=== PATIENT | female | born 1935 | race Caucasian/White ===

== ENCOUNTER 2024-01-18 03:36 | Emergency (ER) | payer MEDICARE, SELFPAY ==
--- NOTE | ~2024-01-18 | CT_ITS ---
EXAMINATION: CT ABDOMEN AND PELVIS WITH CONTRAST CLINICAL INFORMATION: Reason for Exam RUQ, RLQ tender R/O appendicitis, cholecystitis COMPARISON: None available. TECHNIQUE: Multidetector volumetric images were obtained from the superior aspect of the liver through the pubic symphysis following administration 85 mL of Omnipaque 350 intravenous contrast. Sagittal and coronal reformatted images were obtained on the technologist's workstation. Oral contrast: No This CT examination was performed using dose optimization techniques as appropriate, variously including the following: *Automated exposure control *Adjustment of mA and/or kV according to patient size (this includes techniques or standardized protocols for targeted exams where dose is matched to indication/reason for exam; i.e. extremities or head) *Use of iterative reconstruction technique DLP: 529 mGy-cm FINDINGS: LUNG BASES: Mild bibasilar atelectasis. LIVER, GALLBLADDER, AND BILIARY TREE: The liver is normal in size, shape, and attenuation. Left hepatic cyst measures up to 6.2 cm. No biliary ductal dilatation is present. Gallbladder is distended with a few gallstones identified. No appreciable gallbladder wall thickening or surrounding inflammation. PANCREAS: Unremarkable. SPLEEN: Unremarkable. ADRENAL GLANDS: Unremarkable. KIDNEYS AND URETERS: Bilateral nephrograms are symmetric. No hydronephrosis or obstructing calculus identified. Several bilateral renal cysts are present measuring up to 8.8 cm; no follow-up recommended. Left lower pole calculus measures 5 mm. BLADDER: Unremarkable. GASTROINTESTINAL TRACT: Moderate to large hiatal hernia. Mild colonic diverticulosis. No evidence of bowel obstruction or significant wall thickening. Appendix is not discretely visualized. No free fluid or free air is seen. ABDOMINAL WALL: No significant hernia is appreciated. LYMPH NODES: Normal. VASCULAR: Scattered atherosclerotic calcifications. PELVIC VISCERA: Patient appears to be status post hysterectomy. OSSEOUS STRUCTURES: Facet arthropathy of the lumbar spine. Scattered endplate osteophytes. CT/CT abdomen pelvis w IV con IMPRESSION: 1. Distended gallbladder with gallstones. No appreciable gallbladder wall thickening or surrounding inflammation. However, if there is clinical concern for cholecystitis, this would be better assessed with ultrasound. 2. Moderate to large hiatal hernia. 3. Left lower pole 5 mm renal calculus without hydronephrosis.
[2024-01-18 03:43] VITALS: BP 132/61; PULSE 84; RESP 14; TEMP 36.6; O2SAT 97
[2024-01-18 03:49] VITALS: BP 126/80; BP 132/61; PULSE 72; PULSE 84; RESP 18; TEMP 36.6; O2SAT 97; O2SAT 99; BMI 29.9
--- NOTE | 2024-01-18 04:06 | ED.ABDPAIN ---
HPI - Abdominal Pain General Chief Complaint: Abdominal Pain Stated Complaint: abd pain Time Seen by Provider: 01/18/24 04:05 Source: patient Mode of arrival: EMS Limitations: no limitations History of Present Illness ED Provider: Dr. Indra Clemens HPI narrative: 88-year-old female with a history of hypertension who presents emergency department for evaluation of abdominal pain. Patient states that she developed abdominal pain around 02:00 hours when she woke up from sleep. She points to her epigastric area when she was asked to localize the pain. She states that the pain feels like a full sensation. She had nausea but no vomiting. She states the pain is 2/10. She states that she took Pepto-Bismol without any relief for pain. This is her 1st episode of this type of pain. She denied fever, chills, rhinorrhea, sore throat, cough. She denied diarrhea, dark stools or bloody stools. Related Data Allergies Allergy/AdvReac Type Severity Reaction Status Date / Time No Known Allergies Allergy Verified 01/18/24 03:54 Review of Systems Review of Systems Yes all other systems are reviewed and are negative [facility] Past Medical History [facility] Narrative: Social history: She denies tobacco, alcohol and drug use Social History Social History Advance Directives: Yes Advance Directives Information Provided: No Advance Directives on File: No Do you have a plan to hurt others: No Plan Physical Exam ED Vital Signs: Vital Signs - 24 hr 01/18/24 03:43 01/18/24 03:49 01/18/24 06:01 Temperature 97.9 F 97.9 F 97.5 F Pulse Rate 84 84 73 Respiratory Rate 14 18 14 Blood Pressure 132/61 132/61 103/49 L Pulse Oximetry 97 99 95 Oxygen Delivery Method Room Air Room Air Room Air BMI result Body Mass Index 29.9 Vital signs were normal. Exam: General: Awake, alert in no distress Head: Normocephalic, atraumatic EENT: PERRL, Lids normal, sclera normal, conjunctiva normal, nose normal , ears normal, throat without erythema or exudates Neck: Supple, no adenopathy Lung: breath sounds symmetric, no wheezing, rales or rhonchi Chest: symmetric movement, nontender Heart: regular rate and rhythm, normal S1, S2 , 2/6 systolic murmur best heard at the left lower sternal border Abdomen: soft, moderate right upper quadrant tenderness with negative Gibbs sign, moderate right lower quadrant tenderness, normoactive bowel sounds, no abdominal distention Back: no vertebral tenderness, no CVAT Extremities: no deformities, moves all extremities symmetrically Neuro: Awake, alert, oriented, normal speech, cranial nerves intact, moves all extremities symmetrically Psych: Pleasant, cooperative Medical Decision Making Medical Decision Making MDM Narrative: 88-year-old female with a history of hypertension who presents emergency department for evaluation of abdominal pain which began at 02:00 hours when she woke up from sleep. Patient had associated nausea, pain was 2/10 at its worse, she took Pepto-Bismol with no relief for symptoms. Vital signs were normal. Exam did reveal right upper quadrant and right lower quadrant tenderness. Differential diagnosis: ?Includes but is not limited to pancreatitis, gastritis, appendicitis, cholecystitis, diverticulitis, electrolyte abnormalities, anemia Following evaluation was ordered: CBC, CMP, lipase, urinalysis, magnesium Patient was initially treated with the following: IV insertion, Toradol 10 mg IV, Zofran 4 mg IV, normal saline 1 L IV Course: 06:11 My interpretation patient's laboratory evaluation as follows: WBC normal 5900. BUN elevated 22 with a normal creatinine of 0.87. Glucose elevated 123. LFTs were normal. Lipase was normal. Urinalysis revealed 2+ leukocyte esterase. Microscopic revealed 0-2 RBCs, 11-20 WBCs, no bacteria seen. Given that there are no bacteria seen, urinary tract infection is less likely and her symptoms do not correlate with a urinary tract infection. Patient's CT scan of the abdomen pelvis with IV contrast revealed a normal-appearing appendix. The patient's gallbladder was distended and had gallstones but was no gallbladder wall thickening or surrounding inflammation. I did re-evaluate the patient and after the above medications she states that her pain is completely resolved. Her right lower quadrant and right upper quadrant tenderness resolved and she has a negative Gibbs sign. It is possible that the patient's pain may have been secondary to biliary colic versus gastritis and I did discuss this with her. Patient was advised to take Tylenol 1000 mg every 6 hours as needed for pain. She was advised to follow up CP in 2 days and to return to the emergency department if her symptoms got worse or if she gets any new symptoms that are concerning to her. Admission/Observation Consideration of admission/observation: Escalation of care including admission/observation considered Lab Data MDM Lab Attestation statement: I reviewed the patient's lab results. 01/18/24 04:04 01/18/24 04:04 Labs: Lab Results 01/18/24 01/18/24 Range/Units 04:04 05:05 WBC 5.9 (4.8-10.8) X10*3/uL RBC 4.68 (4.20-5.50) X10*6/uL Hgb 14.8 (12.0-16.0) g/dl Hct 43.2 (37.0-47.0) % MCV 92.3 (80.0-98.0) fL MCH 31.6 (27.0-33.0) pg MCHC 34.3 (31.0-35.0) g/dl RDW 14.0 (11.0-16.0) % Plt Count 202 (160-400) X10*3/uL MPV 8.6 L (9.4-12.3) fL Immature Gran % (Auto) 0.3 (0.0-0.4) % Neut % (Auto) 55.0 (45-73) % Lymph % (Auto) 31.2 (20-40) % [place] % (Auto) 9.8 (2-11) % Eos % (Auto) 3.2 (0-4) % Baso % (Auto) 0.5 (0-2) % Lymph # (Auto) 1.8 (1.2-4.9) X10*3/uL Butler # (Auto) 0.6 (0.1-1.2) X10*3/uL Eos # (Auto) 0.2 (0.0-0.4) X10*3/uL Baso # (Auto) 0.0 (0.0-0.2) X10*3/uL Abs Immat Gran (auto) 0.02 (0.00-0.03) X10*3/uL Absolute Neuts (auto) 3.2 (2.0-8.3) x10*3/uL Absolute Nucleated RBC 0.000 (0.0-0.012) X10*3/uL Nucleated RBC % (auto) 0.0 (0.0-0.2) /100WBC Sodium 143 (135-145) mmol/L Potassium 4.6 (3.3-5.1) mmol/L Chloride 109 H (96-108) mmol/L Carbon Dioxide 24 (22-29) mmol/L Anion Gap 15 (12-20) BUN 22 H (9-16) mg/dL Creatinine 0.87 (0.5-1.4) mg/dL Estim Creat Clear Calc 42.1 Estimated GFR > 60 Fasting Glucose 123 H (60-99) mg/dL Calcium 9.7 (8.4-10.2) mg/dL Magnesium 2.2 (1.6-2.6) mg/dL Total Bilirubin 0.6 (0.0-1.0) mg/dL AST 14 (5-31) U/L ALT 17 (0-31) U/L Alkaline Phosphatase 90 (39-117) U/L Total Protein 6.7 (6.5-8.0) g/dL Albumin 4.2 (3.5-5.0) g/dL Lipase 25 (8-78) U/L Urine Color Yellow Urine Appearance Clear Urine pH 5.5 (5.0-9.0) Ur Specific [facility] 1.015 (1.005-1.025) Urine Protein Negative (Neg-Trace) mg/dL Urine Glucose (UA) Negative (Negative) mg/dL Urine Ketones Negative (Negative) mg/dL Urine Blood Negative (Negative) Urine Nitrite Negative (Negative) Ur Leukocyte Esterase Moderate (2+) H (Negative) Urine RBC 0-2 (0-2) /HPF Urine WBC 11-20 H (0-5) /HPF Ur Squamous Epith Cells 0-2 (0-2) /HPF Urine Bacteria None Seen (None Seen) Hyaline Casts 0-2 (0-2) /LPF Radiology Impression Discussion of test interpretation with radiology: I have reviewed the radiologist's reading. Radiologist Impression: CT abdomen pelvis w IV con IMPRESSION: 1. Distended gallbladder with gallstones. No appreciable gallbladder wall thickening or surrounding inflammation. However, if there is clinical concern for cholecystitis, this would be better assessed with ultrasound. 2. Moderate to large hiatal hernia. 3. Left lower pole 5 mm renal calculus without hydronephrosis. Dictated By: Alfred Cope MD Chronic Conditions Patient?s care impacted by: Hypertension Medications Administered Discontinued Medications Generic Name Dose Route Start Last Admin Trade Name Medina PRN Reason Stop Dose Admin Sodium Chloride 1,000 mls @ 999 mls/hr 01/18/24 04:17 01/18/24 04:38 Ns IV 01/18/24 05:17 999 mls/hr .Q1H1M STA Administration Iohexol 85 ml 01/18/24 05:01 01/18/24 05:01 Iohexol 350 Mg/Ml 100 Ml Infus..Btl IV 01/18/24 05:02 85 ml ONCE ONE Administration Ketorolac Tromethamine 10 mg 01/18/24 04:17 01/18/24 04:38 Ketorolac Tromethamine 15 Mg/Ml Vial IVPUSH 01/18/24 04:18 10 mg ONCE STA Administration Ondansetron HCl 4 mg 01/18/24 04:17 01/18/24 04:38 Ondansetron Hcl 4 Mg/2 Ml Vial IVPUSH 01/18/24 04:18 4 mg ONCE ONE Administration Discharge Plan Discharge Clinical Impression: Abdominal pain Qualifiers: Abdominal location: right upper quadrant Qualified Code(s): R10.11 - Right upper quadrant pain Gallstone Qualifiers: Cholecystitis presence: without cholecystitis Biliary obstruction: without biliary obstruction Qualified Code(s): K80.20 - Calculus of gallbladder without cholecystitis without obstruction Patient Disposition: Home, Self-Care Additional Instructions: Your blood work was normal. Your urinalysis did not reveal any bacteria in your urine therefore I do not think that you have a urinary tract infection is the cause of your pain. The CT scan of your abdomen pelvis with IV contrast revealed a normal-appearing appendix. Your gallbladder is distended and you do have gallstones but there is no [place] around the gallbladder and the liver to suggest that you have cholecystitis (blockage of drainage of bile out of the gallbladder). After he received the pain medication here in the emergency department your tenderness went away completely which is very reassuring. I suspect that you may have biliary colic caused by the gallstones in you will need to follow-up with our on-call surgeon morning or with your primary care doctor for re-evaluation and to determine if you need your gallbladder taken out. Continue taking medications as prescribed. Take Tylenol (acetaminophen) 500 mg pills, 2 pills every 6 hours as needed for pain or fever. Follow-up with your doctor in 2 days. Please return to the emergency department if your symptoms get worse or if you develop any symptoms that are concerning to you. There were several incidental findings on the CT scan including a left sided kidney stone and moderate to large hiatal hernia. You will need to follow-up with your primary care doctor to discuss these findings to see if there is any other testing or treatment that you need for them. The radiology impression is below, please show this to your primary care doctor. CT abdomen pelvis w IV con IMPRESSION: 1. Distended gallbladder with gallstones. No appreciable gallbladder wall thickening or surrounding inflammation. However, if there is clinical concern for cholecystitis, this would be better assessed with ultrasound. 2. Moderate to large hiatal hernia. 3. Left lower pole 5 mm renal calculus without hydronephrosis. Dictated By: Alfred Cope MD Referrals: Salazar Koch MD [Physician] - 2 weeks (Seen for RUQ and RLQ pain and tenderness. CBC, CMP and lipase were normal. CT abdomen pelvis IV contrast revealed distended gallbladder with gallstones but no inflammatory changes or gallbladder wall thickening) Print Language: [place]
[2024-01-18 04:08] LABS: Basophils Percent Auto 0.5 % (0-2); Eosinophils Absolute Auto 0.2 X10*3/uL (0.0-0.4); Eosinophils Percent Auto 3.2 % (0-4); Hematocrit 43.2 % (37.0-47.0); Hemoglobin 14.8 g/dl (12.0-16.0); Imm Gran Abs Auto 0.02 X10*3/uL (0.00-0.03); Imm Gran Pct Auto 0.3 % (0.0-0.4); Lymphocytes Absolute Auto 1.8 X10*3/uL (1.2-4.9); Lymphocytes Percent Auto 31.2 % (20-40); MANUAL DIFF FLAG NO; Mean Corpuscular HGB Conc 34.3 g/dl (31.0-35.0); Mean Corpuscular Hemoglobin 31.6 pg (27.0-33.0); Mean Corpuscular Volume 92.3 fL (80.0-98.0); Mean Platelet Volume 8.6 fL (9.4-12.3); Monocytes Absolute Auto 0.6 X10*3/uL (0.1-1.2); Monocytes Percent Auto 9.8 % (2-11); Neutrophils Absolute Auto 3.2 x10*3/uL (2.0-8.3); Platelet Count 202 X10*3/uL (160-400); Red Blood Count 4.68 X10*6/uL (4.20-5.50); White Blood Count 5.9 X10*3/uL (4.8-10.8)
[2024-01-18 04:22] LABS: Alanine Aminotransferase 17 U/L (0-31); Albumin Level 4.2 g/dL (3.5-5.0); Alkaline Phosphatase 90 U/L (39-117); Anion Gap 15 (12-20); Aspartate Amino Transferase 14 U/L (5-31); Bilirubin Total 0.6 mg/dL (0.0-1.0); Blood Urea Nitrogen 22 mg/dL (9-16); Calcium 9.7 mg/dL (8.4-10.2); Carbon Dioxide 24 mmol/L (22-29); Chloride 109 mmol/L (96-108); Creatinine Clr Calc Pharmacy 42.1; Estimated Glomerular Filt Rate > 60; Glucose Fasting 123 mg/dL (60-99); Lipase 25 U/L (8-78); Magnesium 2.2 mg/dL (1.6-2.6); Potassium 4.6 mmol/L (3.3-5.1); Sodium 143 mmol/L (135-145); Total Protein 6.7 g/dL (6.5-8.0)
[2024-01-18] MEDS: 0.9 % Sodium Chloride 1,000 ML 999 ML IV (04:38)
[2024-01-18] MEDS: ondansetron HCL 4 MG/2 ML VIAL IVPUSH (04:38)
[2024-01-18] MEDS: Ketorolac Tromethamine 15 MG/ML VIAL 10 MG IVPUSH (04:38)
--- NOTE | 2024-01-18 04:41 | PC.NURSE ---
#20 IV placed L-AC, labs drawn, meds and fluid administered per AUG.
[2024-01-18] MEDS: iohexoL 350 MG/ML 100 ML INFUS..BTL 85 ML IV (05:01)
[2024-01-18 05:10] LABS: Appearance Urine Clear; Color Urine Yellow; Glucose Urine UA Negative (Negative); Leukocyte Esterase Urine Moderate (2+) (Negative); Nitrite Urine Negative (Negative); PH 5.5 (5.0-9.0); Specific Gravity - Urine 1.015 (1.005-1.025); UMIC TRIGGER UACC YES; Urine Blood Negative (Negative); Urine Ketones Negative (Negative); Urine Protein Negative (Neg-Trace)
[2024-01-18 05:14] LABS: Bacteria Urine None Seen (None Seen); Hyaline Casts Urine 0-2 /LPF (0-2); RBC Urine 0-2 /HPF (0-2); Squamous Epithelial Cell Urine 0-2 /HPF (0-2); UACC Culture Trigger YES
[2024-01-18 06:01] VITALS: BP 103/49; PULSE 73; RESP 14; TEMP 36.4; O2SAT 95
--- NOTE | 2024-01-18 06:31 | PC.NURSE ---
pt ready for discharge, t/w called daughter listed under contacts. Home number did not ring and cell phone number went to voicemail. v/m requesting call back.
--- NOTE | 2024-01-18 08:41 | PC.NURSE ---
this RN has called [employer] to try and get patient a ride, they will call back if they can find one. The patients daughter also called back and stated she is in [place] and can not get the patient, and her brother is also unavailable. This RN was told to contact Father Olman to see if he could, however we do not have the contact information for him at this time.
--- NOTE | 2024-01-18 08:49 | PC.NURSE ---
Patient daughter just called back stating that her other daughter Romina would come get patient, she is currently an hour away Charge nurse aware and pt will remain in ED until daughter here d/t flight risk
[2024-01-18 10:03] VITALS: BP 124/68; PULSE 68; RESP 18; TEMP 36.6; O2SAT 98
== END 2024-01-18 10:04 | disposition home or self-care (01) ==
PROVIDERS: Emergency Provider Emergency Medicine Emergency Medical Services
DX: K80.20 Calculus of gallbladder without cholecystitis without obstruction (principal); R10.11 Right upper quadrant pain
CPT/HCPCS: 36415; 74177; 80053; 81001; 83690; 83735; 85025; 87086; 96361; 96374; 96375; 99284; J1885; J2405; Q9967

== ENCOUNTER 2025-04-07 13:46 | Inpatient (IN) | payer MEDICARE, SELFPAY ==
--- NOTE | 2025-04-07 | ECG_ITS ---
Test Reason : HTN Blood Pressure : */* mmHG Vent. Rate : 64 BPM Atrial Rate : 64 BPM P-R Int : 158 ms QRS Dur : 74 ms QT Int : 420 ms P-R-T Axes : 61 27 51 degrees QTcB Int : 433 ms Normal sinus rhythm Normal ECG No previous ECGs available Referred By: Angy Cardoza Electronically Signed By: Prasad Berumen
--- NOTE | ~2025-04-07 | MR_ITS ---
CLINICAL HISTORY: rule out CVA MR Brain without gadolinium Comparison: CT/SR - CT HEAD/BRAIN WO IV CON - 04/07/25 21:30 EDT Findings: No restricted diffusion. Left and right frontal lobe single lacunar foci of increased T2 and FLAIR signal, axial image number 18 of 28 series 8. No midline shift. No hydrocephalus. Vascular flow voids are intact. The orbits are normal. The sinuses and mastoid air cells are clear. No focal bone lesion. IMPRESSION: 1. 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 2. No acute intracranial findings. No acute ischemic event identified. This document has been electronically signed by: Huy Rainey MD on 04/08/2025 20:08:01
--- NOTE | ~2025-04-07 | US_ITS ---
CLINICAL HISTORY: Gallstones, distended gallbladder, wall thickening --- Additional Notes or Special Instructions: noted on CT. Liver, Gallbladder and common bile duct study US abdomen limited Comparison: None provided Findings: The visualized pancreas is normal. The aorta and inferior vena cava are normal caliber. The liver is normal in size and echotexture. Left liver lobe lateral segment anechoic focus with posterior acoustic enhancement, 5 x 4.6 x 6.4 cm. There is no intrahepatic bile duct dilatation. The common duct is 3 mm in diameter. The gallbladder demonstrates multiple hyperechoic gravity dependent foci with posterior acoustic shadowing. There is no sonographic Gibbs sign. The main portal vein is antegrade. Right renal lower pole anechoic focus with posterior acoustic enhancement, 5.4 x 4.8 x 5.9 cm; simple cyst. No ascites. IMPRESSION: Cholelithiasis. Left liver lobe lateral segment hepatic cyst, 5 x 4.6 x 6.4 cm. This document has been electronically signed by: Huy Rainey MD on 04/07/2025 19:37:10
--- NOTE | ~2025-04-07 | CT_ITS ---
EXAMINATION: CT HEAD WITHOUT IV CONTRAST HISTORY: recent stroke. Change in mental status. TECHNIQUE: Unenhanced helical CT of the head was performed per standard departmental protocol. Coronal and sagittal reformats of the head were also evaluated. One or more of the following techniques was used for dose reduction: Automated exposure control, adjustment of the mA and/or kV according to patient size, use of iterative reconstruction technique. DLP: 811 mGy-cm COMPARISON: Comparison is made with the prior examination dated 04/07/2025. FINDINGS: BRAIN: There is diffuse prominence of the ventricular system and cortical sulci, consistent with atrophy. Periventricular and subcortical white matter hypodensities are noted which are nonspecific, but often seen in the setting of small vessel ischemic disease. There is no mass effect or midline shift. No intra- or extra-axial fluid collections are identified. SINUSES: The visualized paranasal sinuses are clear. The mastoid air cells and middle ear cavities are well pneumatized. ORBITS: The visualized orbits are unremarkable. BONES/SOFT TISSUES: The extracranial soft tissues are unremarkable. The calvarium is intact. No suspicious lytic or sclerotic lesions. CT/CT head/brain wo IV con IMPRESSION: No acute intracranial abnormality. Electronically signed by: Abhay Frederick MD 04/09/2025 10:10 AM EDT
--- NOTE | ~2025-04-07 | CT_ITS ---
CLINICAL HISTORY: AMS new - pt injected with IV contrast [address] head without contrast Comparison: None provided Findings: No intra-axial mass, midline shift, hydrocephalus, or acute hemorrhage. Mild heterogeneous low attenuation in the periventricular white matter. The visualized paranasal sinuses and mastoid air cells are normal. The orbits are within normal limits. There is no acute fracture. Hyperostosis frontalis interna. IMPRESSION: 1. Mild chronic periventricular microvascular ischemic disease 2. Hyperostosis frontalis interna. 3. No acute intracranial findings. This document has been electronically signed by: Huy Rainey MD on 04/07/2025 22:30:05
--- NOTE | ~2025-04-07 | CT_ITS ---
CLINICAL HISTORY: RLQ pain, H O gallstone R O appendicitis, biliary CT abdomen and pelvis with contrast Comparison: CT/SR - CT ABDOMEN PELVIS WITH IV CONTRAST - 01/18/24 04:48 EDT Findings: Large hiatal hernia, similar to the prior exam. Clear lung bases. 6.4 cm cyst within the lateral segment of the liver. Multiple bilateral kidney cysts measuring up to 8 cm in size. 5 mm nonobstructive calculus within the lower pole of the left kidney without change. Borderline dilatation of the right renal collecting system without change. Pancreatic volume loss is present. The spleen and adrenal glands are unremarkable. The gallbladder is distended and contains multiple gallstones. There is thickening of the gallbladder wall which appears new since the prior study. There is a small amount of free fluid within the abdomen and pelvis, new since the prior exam. There is edema of a segment of small bowel within the right lower quadrant. There is marked congestion of the adjacent mesentery. No bowel obstruction. No pneumatosis or portal venous gas. Status post hysterectomy. Unremarkable urinary bladder. The appendix is not definitively seen. There are no secondary findings to suggest appendicitis. There is a small amount of ascites. No acute fracture. IMPRESSION: 1. There is severe enteritis of a segment of small bowel within the right lower quadrant with severe associated mesenteric edema. Infectious enteritis, inflammatory bowel disease and ischemic enteritis are all in the differential. 2. Cholelithiasis with thickening of the gallbladder wall. If there is any clinical concern for the possibility of acute cholecystitis, this could be further evaluated with ultrasound 3. Additional chronic findings as above. This document has been electronically signed by: Rica Logn MD on 04/07/2025 17:57:58
[2025-04-07 14:19] VITALS: BP 138/66; PULSE 75; O2SAT 100
[2025-04-07 14:34] VITALS: BP 164/79; PULSE 68; RESP 20; TEMP -17.7; TEMP 0; O2SAT 99; BMI 29.4
--- NOTE | 2025-04-07 14:42 | PC.NURSE ---
pt is alert and oriented to her baseline, is able to state she is at a hospital but unable to state the year-pt sates she just cant think right now do to her pain, pt is reporting lower abd pain that started today, denies n/v/d, bowel sounds hypoactive, abd soft but tender especially on the right lower
[2025-04-07 15:03] LABS: MANUAL DIFF FLAG NO
[2025-04-07 15:04] LABS: Hematocrit 48.8 % (37.0-47.0); Hemoglobin 16.4 g/dl (12.0-16.0); Imm Gran Abs Auto 0.03 X10*3/uL (0.00-0.03); Imm Gran Pct Auto 0.4 % (0.0-0.4); Lymphocytes Absolute Auto 1.5 X10*3/uL (1.2-4.9); Mean Corpuscular HGB Conc 33.6 g/dl (31.0-35.0); Mean Corpuscular Hemoglobin 30.8 pg (27.0-33.0); Mean Corpuscular Volume 91.6 fL (80.0-98.0); NRBC Abs Auto 0.000 X10*3/uL (0.0-0.012); NRBC Pct Auto 0.0 /100WBC (0.0-0.2); Platelet Count 185 X10*3/uL (160-400); Red Blood Count 5.33 X10*6/uL (4.20-5.50); White Blood Count 7.8 X10*3/uL (4.8-10.8)
[2025-04-07 15:28] LABS: Alanine Aminotransferase 17 U/L (0-31); Albumin Level 4.6 g/dL (3.5-5.0); Anion Gap 13 (12-20); Aspartate Amino Transferase 24 U/L (5-31); Blood Urea Nitrogen 16 mg/dL (9-16); Calcium 9.9 mg/dL (8.4-10.2); Carbon Dioxide 24 mmol/L (22-29); Chloride 107 mmol/L (96-108); Creatinine Clr Calc Pharmacy 44.5; Estimated Glomerular Filt Rate > 60; Lipase 18 U/L (8-78); Potassium 4.0 mmol/L (3.3-5.1); Sodium 140 mmol/L (135-145); Total Protein 7.1 g/dL (6.5-8.0)
--- NOTE | 2025-04-07 15:48 | ED.ABDPAIN ---
HPI - Abdominal Pain General Chief Complaint: Abdominal Pain Stated Complaint: body pain, nausea Time Seen by Provider: 04/07/25 15:48 Source: patient Mode of arrival: EMS Limitations: other (Memory issues) History of Present Illness ED Provider: Dr. Indra Clemens HPI narrative: 88-year-old female with a history of hypertension who presents emergency department for evaluation of abdominal pain. Patient has some memory issues that has unclear how reliable of a historian she is. Patient states the pain started prior to coming to the emergency department. She points to her lower abdomen when she is asked to localize the pain. She can not tell me the severity or quality of the pain. She complained of nausea and vomiting but no diarrhea. On exam she did have significant right lower quadrant tenderness with no right upper quadrant tenderness Patient was seen in the emergency department on 01/18/2024 by me with similar right lower quadrant tenderness. At that time she had a CT scan of the abdomen pelvis with IV contrast that revealed a distended gallbladder with gallstones but no gallbladder wall thickening and a normal-appearing appendix. She was treated with Toradol IV fluid and Zofran with improvement of her symptoms. She was discharged home with a diagnosis of right lower quadrant abdominal pain and cholelithiasis. Related Data Home Medications ?Medication ?Instructions ?Recorded ?Confirmed amlodipine 10 mg tablet 10 mg PO DAILY 04/07/25 04/08/25 lisinopril 10 mg tablet 10 mg PO DAILY 04/07/25 04/08/25 Allergies Allergy/AdvReac Type Severity Reaction Status Date / Time No Known Allergies Allergy Verified 04/07/25 14:37 [facility] Past Medical History Medical History (Updated 04/11/25 @ 10:12 by Indio Jones MD) HTN (hypertension) Surgical History H/O: hysterectomy Social History Social History Household Members: None Housing: Apartment Housing Other:: [address] Do you presently have visiting nurse or other home services: No Alcohol intake: never Comment: freq checks on pt Patient Tobacco Use Status: Never used Tobacco Smoked in Last 30 Days: No Use of substances other than those prescribed or required for medical reasons: No Currently Displaying Signs/Symptoms of Drug Intoxication Withdrawal: No Have you been hit, kicked, punched, or otherwise hurt by someone within the past year? If so, by whom?: No Do you feel safe in your current relationship?: Yes Is there a partner from a previous relationship who is making you feel unsafe now?: No Are you made to feel afraid or neglected: No Advance Directives: No Advance Directives Information Provided: Yes Do you have a plan to hurt others: No Plan Recently lost weight without trying: Unsure Eating poorly because of decreased appetite: No Nutrition Risks: No Nutritional Risk Patient : No : No Poor oral hygiene: No service: No Physical Exam ED Vital Signs: Vital Signs - 24 hr 04/07/25 14:34 04/07/25 17:24 04/07/25 18:57 Temperature 0 F L 98 F 97.8 F Pulse Rate 68 69 71 Respiratory Rate 20 18 19 Blood Pressure 164/79 H 140/70 H 154/82 H Pulse Oximetry 99 98 97 Oxygen Delivery Method Room Air Room Air Room Air BMI result Body Mass Index 29.4 Vital signs revealed an elevated blood pressure of 164/79 otherwise unremarkable. Exam: General: Awake, alert in no distress, and does appear to be confused and has some difficulty with her memory Head: Normocephalic, atraumatic EENT: PERRL, sclera and conjunctiva are normal, mouth with no erythema or exudates Neck: Supple, no adenopathy Lung: breath sounds symmetric, no wheezing, no rales and no rhonchi Chest: symmetric movement, nontender Heart: regular rate and rhythm, normal S1, S2 no murmurs or rubs Abdomen: soft, moderate right lower quadrant tenderness with no rebound, no right upper quadrant tenderness, negative Gibbs sign, nondistended, normal bowel sounds Back: no vertebral tenderness, no CVAT Extremities: no deformities, moves all extremities symmetrically, no edema Neuro: Awake, alert, oriented to person, normal speech, cranial nerves 2-12 intact, moves all extremities symmetrically Psych: Pleasant, cooperative Medical Decision Making Medical Decision Making MDM Narrative: 88-year-old female with a history of hypertension who presents emergency department for evaluation of abdominal pain. Patient has some memory issues that has unclear how reliable of a historian she is. Patient states the pain started prior to coming to the emergency department. She points to her lower abdomen when she is asked to localize the pain. She can not tell me the severity or quality of the pain. She complained of nausea and vomiting but no diarrhea. On exam patient had an elevated blood pressure, she did have significant right lower quadrant tenderness with no right upper quadrant tenderness Differential diagnosis: ?Includes but is not limited to pancreatitis, cholecystitis, gastritis, appendicitis, diverticulitis, anemia, electrolyte abnormalities Course: 18:31 Patient was initially treated with normal saline IV x1 L, famotidine 20 mg IV and Toradol 15 mg IV with improvement of her pain but no change in her right lower quadrant tenderness. My interpretation patient's laboratory evaluation is as follows: CBC was normal. Glucose elevated 162. LFTs were normal except for an elevated total bilirubin of 1.5, normal direct bilirubin of 0.4, indirect bilirubin of 1.1. LFTs were normal. Lipase was normal CT scan of the abdomen pelvis is consistent with severe enteritis of segment of small bowel in the right lower quadrant with severe associated mesenteric edema. This correlates with her right lower quadrant tenderness. Radiologist felt that this could be secondary to inflammatory bowel disease versus ischemic colitis. Patient was also noted to have cholelithiasis with thickening of the gallbladder wall. Patient had no right upper quadrant tenderness. Given these findings I did order blood cultures x2, lactic acid, right upper quadrant ultrasound to evaluate for possible acute cholecystitis. Patient was also ordered to get Zosyn 4.5 g IV and lactated Ringer's at 125 cc/hour. 20:03 Patient complained of increased pain and was treated with morphine 4 mg IV with relief of her discomfort Right upper quadrant ultrasound revealed no intrahepatic ductal dilatation or common bile duct dilatation. The patient had multiple gallstones but no evidence of gallbladder wall thickening or perihepatic fluid to suggest she has a acute cholecystitis. I did discuss the patient's presentation over tiger text with the covering hospitalist, Dr. Burton and the patient will be admitted to the hospitalist service for further management. Differential Diagnosis Differential Diagnoses: The differential diagnosis associated with the presentation includes (See above) Admission/Observation Consideration of admission/observation: Escalation of care including admission/observation considered (Yes) Lab Data 04/09/25 09:28 04/09/25 09:28 Labs: Lab Results 04/07/25 04/07/25 04/07/25 Range/Units 14:56 17:10 18:50 WBC 7.8 (4.8-10.8) X10*3/uL RBC 5.33 (4.20-5.50) X10*6/uL Hgb 16.4 H (12.0-16.0) g/dl Hct 48.8 H (37.0-47.0) % MCV 91.6 (80.0-98.0) fL MCH 30.8 (27.0-33.0) pg MCHC 33.6 (31.0-35.0) g/dl RDW 13.3 (11.0-16.0) % Plt Count 185 (160-400) X10*3/uL MPV 8.8 L (9.4-12.3) fL Immature Gran % (Auto) 0.4 (0.0-0.4) % Neut % (Auto) 75.1 H (45-73) % Lymph % (Auto) 18.9 L (20-40) % [place] % (Auto) 5.3 (2-11) % Eos % (Auto) 0.0 (0-4) % Baso % (Auto) 0.3 (0-2) % Lymph # (Auto) 1.5 (1.2-4.9) X10*3/uL [place] # (Auto) 0.4 (0.1-1.2) X10*3/uL Eos # (Auto) 0.0 (0.0-0.4) X10*3/uL Baso # (Auto) 0.0 (0.0-0.2) X10*3/uL Abs Immat Gran (auto) 0.03 (0.00-0.03) X10*3/uL Absolute Neuts (auto) 5.8 (2.0-8.3) x10*3/uL Absolute Nucleated RBC 0.000 (0.0-0.012) X10*3/uL Nucleated RBC % (auto) 0.0 (0.0-0.2) /100WBC ESR (0-20) MM/HR Sodium 140 (135-145) mmol/L Potassium 4.0 (3.3-5.1) mmol/L Chloride 107 (96-108) mmol/L Carbon Dioxide 24 (22-29) mmol/L Anion Gap 13 (12-20) BUN 16 (9-16) mg/dL Creatinine 0.80 (0.5-1.4) mg/dL Estim Creat Clear Calc 44.5 Estimated GFR > 60 Random Glucose 162 H (60-115) mg/dL Lactic Acid 2.1 H* (0.5-2.0) mmol/L Calcium 9.9 (8.4-10.2) mg/dL Iron 80 (30-160) mcg/dL TIBC 263 (228-428) mcg/dL % Saturation 30 (15-50) % Unsat Iron Binding 183 ug/dL Total Bilirubin 1.5 H (0.0-1.0) mg/dL Direct Bilirubin 0.4 (0.0-0.5) mg/dL AST 24 (5-31) U/L ALT 17 (0-31) U/L Alkaline Phosphatase 90 (39-117) U/L C-Reactive Protein (< or = 0.50) mg/dL Total Protein 7.1 (6.5-8.0) g/dL Albumin 4.6 (3.5-5.0) g/dL Lipase 18 (8-78) U/L Urine Color Yellow Urine Appearance Clear Urine pH 7.0 (5.0-9.0) Ur Specific [place] 1.025 (1.005-1.025) Urine Protein Trace (Neg-Trace) mg/dL Urine Glucose (UA) 250 H (Negative) mg/dL Urine Ketones 15 (Negative) mg/dL Urine Blood Negative (Negative) Urine Nitrite Negative (Negative) Ur Leukocyte Esterase Trace H (Negative) Urine RBC 0-2 (0-2) /HPF Urine WBC 0-5 (0-5) /HPF Ur Squamous Epith Cells 0-2 (0-2) /HPF Urine Bacteria None Seen (None Seen) Hyaline Casts 0-2 (0-2) /LPF 04/07/25 Range/Units 19:01 WBC (4.8-10.8) X10*3/uL RBC (4.20-5.50) X10*6/uL Hgb (12.0-16.0) g/dl Hct (37.0-47.0) % MCV (80.0-98.0) fL MCH (27.0-33.0) pg MCHC (31.0-35.0) g/dl RDW (11.0-16.0) % Plt Count (160-400) X10*3/uL MPV (9.4-12.3) fL Immature Gran % (Auto) (0.0-0.4) % Neut % (Auto) (45-73) % Lymph % (Auto) (20-40) % [place] % (Auto) (2-11) % Eos % (Auto) (0-4) % Baso % (Auto) (0-2) % Lymph # (Auto) (1.2-4.9) X10*3/uL [place] # (Auto) (0.1-1.2) X10*3/uL Eos # (Auto) (0.0-0.4) X10*3/uL Baso # (Auto) (0.0-0.2) X10*3/uL Abs Immat Gran (auto) (0.00-0.03) X10*3/uL Absolute Neuts (auto) (2.0-8.3) x10*3/uL Absolute Nucleated RBC (0.0-0.012) X10*3/uL Nucleated RBC % (auto) (0.0-0.2) /100WBC ESR 2 (0-20) MM/HR Sodium (135-145) mmol/L Potassium (3.3-5.1) mmol/L Chloride (96-108) mmol/L Carbon Dioxide (22-29) mmol/L Anion Gap (12-20) BUN (9-16) mg/dL Creatinine (0.5-1.4) mg/dL Estim Creat Clear Calc Estimated GFR Random Glucose (60-115) mg/dL Lactic Acid (0.5-2.0) mmol/L Calcium (8.4-10.2) mg/dL Iron (30-160) mcg/dL TIBC (228-428) mcg/dL % Saturation (15-50) % Unsat Iron Binding ug/dL Total Bilirubin (0.0-1.0) mg/dL Direct Bilirubin (0.0-0.5) mg/dL AST (5-31) U/L ALT (0-31) U/L Alkaline Phosphatase (39-117) U/L C-Reactive Protein 0.22 (< or = 0.50) mg/dL Total Protein (6.5-8.0) g/dL Albumin (3.5-5.0) g/dL Lipase (8-78) U/L Urine Color Urine Appearance Urine pH (5.0-9.0) Ur Specific [place] (1.005-1.025) Urine Protein (Neg-Trace) mg/dL Urine Glucose (UA) (Negative) mg/dL Urine Ketones (Negative) mg/dL Urine Blood (Negative) Urine Nitrite (Negative) Ur Leukocyte Esterase (Negative) Urine RBC (0-2) /HPF Urine WBC (0-5) /HPF Ur Squamous Epith Cells (0-2) /HPF Urine Bacteria (None Seen) Hyaline Casts (0-2) /LPF Radiology Impression Discussion of test interpretation with radiology: I have reviewed the radiologist's reading. Radiologist Impression: CT abdomen and pelvis with contrast Comparison: CT/SR - CT ABDOMEN PELVIS WITH IV CONTRAST - 01/18/24 04:48 EDT Findings: Large hiatal hernia, similar to the prior exam. Clear lung bases. 6.4 cm cyst within the lateral segment of the liver. Multiple bilateral kidney cysts measuring up to 8 cm in size. 5 mm nonobstructive calculus within the lower pole of the left kidney without change. Borderline dilatation of the right renal collecting system without change. Pancreatic volume loss is present. The spleen and adrenal glands are unremarkable. The gallbladder is distended and contains multiple gallstones. There is thickening of the gallbladder wall which appears new since the prior study. There is a small amount of free fluid within the abdomen and pelvis, new since the prior exam. There is edema of a segment of small bowel within the right lower quadrant. There is marked congestion of the adjacent mesentery. No bowel obstruction. No pneumatosis or portal venous gas. Status post hysterectomy. Unremarkable urinary bladder. The appendix is not definitively seen. There are no secondary findings to suggest appendicitis. There is a small amount of ascites. No acute fracture. IMPRESSION: 1. There is severe enteritis of a segment of small bowel within the right lower quadrant with severe associated mesenteric edema. Infectious enteritis, inflammatory bowel disease and ischemic enteritis are all in the differential. 2. Cholelithiasis with thickening of the gallbladder wall. If there is any clinical concern for the possibility of acute cholecystitis, this could be further evaluated with ultrasound 3. Additional chronic findings as above. This document has been electronically signed by: Rica Long MD on 04/07/2025 17:57:58 US abdomen limited Comparison: None provided Findings: The visualized pancreas is normal. The aorta and inferior vena cava are normal caliber. The liver is normal in size and echotexture. Left liver lobe lateral segment anechoic focus with posterior acoustic enhancement, 5 x 4.6 x 6.4 cm. There is no intrahepatic bile duct dilatation. The common duct is 3 mm in diameter. The gallbladder demonstrates multiple hyperechoic gravity dependent foci with posterior acoustic shadowing. There is no sonographic Gibbs sign. The main portal vein is antegrade. Right renal lower pole anechoic focus with posterior acoustic enhancement, 5.4 x 4.8 x 5.9 cm; simple cyst. No ascites. IMPRESSION: Cholelithiasis. Left liver lobe lateral segment hepatic cyst, 5 x 4.6 x 6.4 cm. This document has been electronically signed by: Huy Rainey MD on 04/07/2025 19:37:10 Medications Administered Generic Name Dose Route Start Last Admin Trade Name Freq PRN Reason Stop Dose Admin Acetaminophen 650 mg 04/07/25 20:31 04/10/25 06:18 Acetaminophen 325 Mg Tablet PO 325 mg Q6H PRN Administration Pain, Mild 1-3,fever,headache Atorvastatin Calcium 80 mg 04/09/25 09:00 04/11/25 09:13 Atorvastatin Calcium 80 Mg Tablet PO 80 mg DAILY MARIBEL Administration Hydromorphone HCl 1 mg 04/07/25 20:33 04/09/25 17:20 Hydromorphone Hcl 1 Mg/Ml Syringe IVPUSH 1 mg Q3H PRN Administration Pain, Severe (Pain Scale 7-10) Protocol Hydromorphone HCl 0.5 mg 04/07/25 20:34 04/08/25 09:55 Hydromorphone Hcl 0.5 Mg/0.5 Ml Syringe IVPUSH 0.5 mg Q3H PRN Administration Pain, Moderate(Pain Scale 4-6) Protocol Piperacillin Sod/Tazobactam 100 mls @ 200 mls/hr 04/08/25 01:30 04/11/25 13:54 Sod 4.5 gm/ Sodium Chloride IV Infused Q6H MARIBEL Infusion Lisinopril 10 mg 04/10/25 09:00 04/11/25 09:18 Lisinopril 10 Mg Tablet PO 10 mg DAILY MARIBEL Administration Protocol Melatonin 6 mg 04/07/25 20:31 04/08/25 21:06 Melatonin 3 Mg Tablet PO 6 mg BEDTIME PRN Administration Insomnia Metoprolol Tartrate 25 mg 04/11/25 09:00 04/11/25 09:13 Metoprolol Tartrate 25 Mg Tablet PO 25 mg BID MARIBEL Administration Protocol Ondansetron HCl 4 mg 04/07/25 20:31 04/11/25 13:13 Ondansetron Hcl 4 Mg/2 Ml Vial IVPUSH 4 mg Q8H PRN Administration Nausea and Vomiting Sodium Chloride 3 ml 04/08/25 00:00 04/11/25 09:10 0.9 % Sodium Chloride Flush 3 Ml Syringe IVFLUSH 3 ml QSHIFT MARIBEL Administration Discontinued Medications Generic Name Dose Route Start Last Admin Trade Name Freq PRN Reason Stop Dose Admin Aspirin 81 mg 04/09/25 09:00 04/11/25 09:18 Aspirin Enteric Coated 81 Mg Tablet. PO 81 mg DAILY MARIBEL Administration Clopidogrel Bisulfate 75 mg 04/09/25 07:45 04/09/25 11:47 Clopidogrel Bisulfate 75 Mg Tablet PO 04/30/25 07:44 75 mg ONCE MARIBEL Administration Enoxaparin Sodium 40 mg 04/08/25 09:00 04/11/25 09:13 Enoxaparin Sodium 40 Mg/0.4 Ml Syringe SUBCUT 40 mg Q24H MARIBEL Administration Famotidine 20 mg 04/07/25 15:55 04/07/25 16:12 Famotidine 20 Mg Tablet PO 04/07/25 15:56 20 mg ONCE ONE Administration Sodium Chloride 1,000 mls @ 999 mls/hr 04/07/25 15:55 04/07/25 19:29 Ns IV 04/07/25 16:55 Infused .Q1H1M STA Infusion Piperacillin Sod/Tazobactam 100 mls @ 200 mls/hr 04/07/25 18:05 04/07/25 20:18 Sod 4.5 gm/ Sodium Chloride IV 04/07/25 18:34 Infused ONCE ONE Infusion Lactated Ringer's 1,000 mls @ 125 mls/hr 04/07/25 18:45 04/09/25 19:49 Lr IVCONT Infused .Q8H MARIBEL Infusion Iohexol 100 ml 04/07/25 16:45 04/07/25 16:47 Iohexol 350 Mg/Ml 100 Ml Infus..Btl IV 04/07/25 16:46 85 ml ONCE ONE Administration Ketorolac Tromethamine 15 mg 04/07/25 15:55 04/07/25 16:12 Ketorolac Tromethamine 15 Mg/Ml Vial IVPUSH 04/07/25 15:56 15 mg ONCE STA Administration Metoprolol Tartrate 5 mg 04/10/25 15:15 04/10/25 15:19 Metoprolol Tartrate 5 Mg/5 Ml Vial IVPUSH 04/10/25 15:16 5 mg ONCE ONE Administration Protocol Metoprolol Tartrate 25 mg 04/10/25 15:52 04/10/25 16:02 Metoprolol Tartrate 25 Mg Tablet PO 04/10/25 15:53 25 mg ONCE ONE Administration Protocol Morphine Sulfate 4 mg 04/07/25 19:11 04/07/25 19:28 Morphine Sulfate 4 Mg/Ml Cartridge IVPUSH 04/07/25 19:12 4 mg ONCE STA Administration Protocol Ondansetron HCl 4 mg 04/09/25 14:42 04/09/25 14:56 Ondansetron Hcl 4 Mg/2 Ml Vial IVPUSH 04/09/25 14:43 4 mg ONCE ONE Administration Pantoprazole Sodium 40 mg 04/09/25 14:42 04/09/25 14:55 Pantoprazole Sodium 40 Mg/10 Ml Vial IVPUSH 04/09/25 14:43 40 mg ONCE ONE Administration Pantoprazole Sodium 40 mg 04/10/25 09:53 04/10/25 10:23 Pantoprazole Sodium 40 Mg/10 Ml Vial IVPUSH 04/10/25 09:54 40 mg ONCE ONE Administration Prochlorperazine Edisylate 5 mg 04/10/25 13:23 04/10/25 13:29 Prochlorperazine Edisylate 10 Mg/2 Ml Vial IVPUSH 04/10/25 13:24 5 mg ONCE ONE Administration Critical Care Time Critical Care Time Critical Care Time: Yes Total Critical Care Time: 45 Attestation: Critical Care: The patient was critically ill with a high probability of imminent or life threatening deterioration. I spent greater than 30 minutes of discontinuous time evaluating the patient,delivering critical care at the bedside, discussing and evaluating pertinent data with consultants. Critical care time does not include time spent performing separately billable procedures or teaching. Total time spent performing critical care was 45 minutes. Discharge Plan Discharge Clinical Impression: Enteritis Abdominal pain Qualifiers: Abdominal location: right lower quadrant Qualified Code(s): R10.31 - Right lower quadrant pain Patient Disposition: Admitted As Inpatient Interventions: Admission Worksheet (ED) Last Done: 04/07/25 22:17 Discharge Date/Time: 04/08/25 02:36
[2025-04-07 15:59] LABS: Alkaline Phosphatase 90 U/L (39-117)
[2025-04-07] MEDS: iohexoL 350 MG/ML 100 ML INFUS..BTL IV (16:47)
[2025-04-07 17:24] VITALS: BP 140/70; PULSE 69; RESP 18; TEMP 36.6; O2SAT 98
[2025-04-07 17:31] LABS: Appearance Urine Clear; Glucose Urine UA 250 mg/dL (Negative); PH 7.0 (5.0-9.0); Specific Gravity - Urine 1.025 (1.005-1.025); UMIC TRIGGER UACC YES
[2025-04-07 18:57] VITALS: BP 154/82; PULSE 71; RESP 19; TEMP 36.6; O2SAT 97
[2025-04-07] MEDS: Lactated Ringers 1,000 ML 125 ML IVCONT (20:02)
--- NOTE | 2025-04-07 20:34 | PM.IMHP ---
History of Present Illness Date of Service: 04/07/25 Attending physician on admission: Lei Amaya Chief Complaint: abdominal pain Pt is an 89 yo Caucasuan female with PMH HTN, Hysterectomy was BIBA from [facility] where pt lives in an independent living apartment for complaint of lower abdominal pain that started earlier today. Pt at this time is not able to provide any history as she appears to have difficulty with word finding and word salad the majority of the conversation. Neuro exam otherwise stable. Per ED provider, pt was found wandering earlier in the ED and had to be brought back to her room. Pt's symptoms were present prior to receiving morphine today for pain. This job specification writer did call pt's daughter Merlene Pearson) and she confirmed that pt is normally A/O X3 without evidence of word finding problems or confusion. Pt only has hx of HTN and the hysterectomy and has no HX of stroke or arrhythmia including AFIB. Pt is independent with her care needs and usually walks independently without assistive device. Pt's daughter is also pt's HCP and she confirmed that advance directive is DNR DNI. Work up initially included CXR and CT abdomen which identified enteritis. US ABD noted cholelithiasis without acute cholecystiits. Pt was started on LR at 125 mls per hour and Zosyn. Lactic acid 2.2 initially, corrected to 1.2 after fluids. Pt has no leukocytosis, fever but appears to have an elevated H/H 16.4/48.8. UA negative for UTI. Pt currently comfortable but baseline confused with word finding issues. CT head pending. Plan is to admit pt for enteritis, cholelithiais and work up for AMS, encephalopathy? Review of Systems Review of Systems: Yes Unobtainable due to mental status (trouble with work finding ) [facility] Medical History HTN (hypertension) Cognitive capacity: Awake, confused baseline, trouble with word finding, some word salad Functional capacity: independent ambulation Patient : No Surgical History H/O: hysterectomy Social History Household Members: None Housing: Apartment Housing Other:: [address] Do you presently have visiting nurse or other home services: No Alcohol intake: never Patient Tobacco Use Status: Never used Tobacco Smoked in Last 30 Days: No Use of substances other than those prescribed or required for medical reasons: No Have you been hit, kicked, punched, or otherwise hurt by someone within the past year? If so, by whom?: No Do you feel safe in your current relationship?: Yes Is there a partner from a previous relationship who is making you feel unsafe now?: No Are you made to feel afraid or neglected: No Advance Directives: No Advance Directives Information Provided: Yes Do you have a plan to hurt others: No Plan Recently lost weight without trying: Unsure Eating poorly because of decreased appetite: No Nutrition Risks: No Nutritional Risk Patient : No : No Poor oral hygiene: No Ebola Risk: Travel/Contact With Anyone From Affected Area/s: No Has Patient Experienced Ebola Symptoms: No Meds Allergies Allergy/AdvReac Type Severity Reaction Status Date / Time No Known Allergies Allergy Verified 04/07/25 14:37 Active Medications: Current Medications Acetaminophen (Acetaminophen 325 Mg Tablet) 650 mg PO Q6H PRN PRN Reason: Pain, Mild 1-3,fever,headache Albuterol/Ipratropium (Albuterol/Iprat 2.5/0.5mg 3 Ml Ampul.Neb) 3 ml INHALE Q4H PRN PRN Reason: Shortness of Breath/Wheezing Calcium Carbonate (Calcium Carbonate 750 Mg Tab.Chew) 750 mg PO Q4H PRN PRN Reason: Heartburn Lactated Ringer's (Lr) 1,000 mls @ 125 mls/hr IVCONT .Q8H MARIBEL Last Admin: 04/07/25 20:02 Dose: 125 mls/hr Lactated Ringer's (Lr) 1,000 mls @ 100 mls/hr IVCONT .Q10H MARIBEL Piperacillin Sod/Tazobactam (Sod 4.5 gm/ Sodium Chloride) 100 mls @ 200 mls/hr IV Q6H MARIBEL Magnesium Hydroxide (Milk Of Magnesia 30 Ml Oral.Susp) 30 ml PO DAILY PRN PRN Reason: Constipation Melatonin (Melatonin 3 Mg Tablet) 6 mg PO BEDTIME PRN PRN Reason: Insomnia Ondansetron HCl (Ondansetron Hcl 4 Mg/2 Ml Vial) 4 mg IVPUSH Q8H PRN PRN Reason: Nausea and Vomiting Polyethylene Glycol (Polyethylene Glycol 3350 17 Gm Powd.Pack) 17 gm PO DAILY PRN PRN Reason: Constipation Sodium Chloride (0.9 % Sodium Chloride Flush 3 Ml Syringe) 3 ml IVFLUSH QSHIFT [facility] Home Medications ?Medication ?Instructions ?Recorded ?Confirmed ?Last Taken ?Type amlodipine 10 mg tablet 10 mg PO DAILY 04/07/25 Unknown History lisinopril 10 mg tablet 10 mg PO DAILY 04/07/25 Unknown History Physical Exam Vital Signs and Narrative: Vital Signs: Last Vital Signs Temp 97.8 F 04/07/25 18:57 Pulse 71 04/07/25 18:57 Resp 19 04/07/25 18:57 BP 154/82 H 04/07/25 18:57 Pulse Ox 97 04/07/25 18:57 O2 Del Method Room Air 04/07/25 18:57 BMI result Body Mass Index 29.4 Results Labs 04/07/25 14:56 04/07/25 14:56 Labs: Laboratory Results - last 24 hr 04/07/25 04/07/25 04/07/25 14:56 17:10 18:50 MCV 91.6 MCH 30.8 MCHC 33.6 RDW 13.3 Plt Count 185 MPV 8.8 L Immature Gran % (Auto) 0.4 Neut % (Auto) 75.1 H Lymph % (Auto) 18.9 L [place] % (Auto) 5.3 Eos % (Auto) 0.0 Baso % (Auto) 0.3 Lymph # (Auto) 1.5 [place] # (Auto) 0.4 Eos # (Auto) 0.0 Baso # (Auto) 0.0 Abs Immat Gran (auto) 0.03 Absolute Neuts (auto) 5.8 Absolute Nucleated RBC 0.000 Nucleated RBC % (auto) 0.0 ESR Anion Gap 13 Estim Creat Clear Calc 44.5 Estimated GFR > 60 Random Glucose 162 H Lactic Acid 2.1 H* Calcium 9.9 Total Bilirubin 1.5 H Direct Bilirubin 0.4 AST 24 ALT 17 Alkaline Phosphatase 90 C-Reactive Protein Total Protein 7.1 Albumin 4.6 Lipase 18 Urine Color Yellow Urine Appearance Clear Urine pH 7.0 Ur Specific [place] 1.025 Urine Protein Trace Urine Glucose (UA) 250 H Urine Ketones 15 Urine Blood Negative Urine Nitrite Negative Ur Leukocyte Esterase Trace H Urine RBC 0-2 Urine WBC 0-5 Ur Squamous Epith Cells 0-2 Urine Bacteria None Seen Hyaline Casts 0-2 04/07/25 19:01 MCV MCH MCHC RDW Plt Count MPV Immature Gran % (Auto) Neut % (Auto) Lymph % (Auto) [place] % (Auto) Eos % (Auto) Baso % (Auto) Lymph # (Auto) [place] # (Auto) Eos # (Auto) Baso # (Auto) Abs Immat Gran (auto) Absolute Neuts (auto) Absolute Nucleated RBC Nucleated RBC % (auto) ESR 2 Anion Gap Estim Creat Clear Calc Estimated GFR Random Glucose Lactic Acid Calcium Total Bilirubin Direct Bilirubin AST ALT Alkaline Phosphatase C-Reactive Protein 0.22 Total Protein Albumin Lipase Urine Color Urine Appearance Urine pH Ur Specific [place] Urine Protein Urine Glucose (UA) Urine Ketones Urine Blood Urine Nitrite Ur Leukocyte Esterase Urine RBC Urine WBC Ur Squamous Epith Cells Urine Bacteria Hyaline Casts ECG Attestation: I personally reviewed and interpreted this ECG as follows: Prior ECG tracings: not available for review Imaging Radiologist's Impressions: US ABD Findings: The visualized pancreas is normal. The aorta and inferior vena cava are normal caliber. The liver is normal in size and echotexture. Left liver lobe lateral segment anechoic focus with posterior acoustic enhancement, 5 x 4.6 x 6.4 cm. There is no intrahepatic bile duct dilatation. The common duct is 3 mm in diameter. The gallbladder demonstrates multiple hyperechoic gravity dependent foci with posterior acoustic shadowing. There is no sonographic Gibbs sign. The main portal vein is antegrade. Right renal lower pole anechoic focus with posterior acoustic enhancement, 5.4 x 4.8 x 5.9 cm; simple cyst. No ascites. IMPRESSION: Cholelithiasis. Left liver lobe lateral segment hepatic cyst, 5 x 4.[address] ABD IMPRESSION: 1. There is severe enteritis of a segment of small bowel within the right lower quadrant with severe associated mesenteric edema. Infectious enteritis, inflammatory bowel disease and ischemic enteritis are all in the differential. 2. Cholelithiasis with thickening of the gallbladder wall. If there is any clinical concern for the possibility of acute cholecystitis, this could be further evaluated with ultrasound 3. Additional chronic findings as above. Assessment and Plan (1) Enteritis: Status: Acute (2) Abdominal pain: Qualifiers: Abdominal location: right lower quadrant Qualified Code(s): R10.31 - Right lower quadrant pain Status: Acute (3) Cholelithiasis: Qualifiers: Biliary obstruction: without biliary obstruction Cholecystitis presence: without cholecystitis Cholelithiasis location: gallbladder Qualified Code(s): K80.20 - Calculus of gallbladder without cholecystitis without obstruction Status: Acute (4) Word finding difficulty: Status: Acute Plan Pt is an 89 yo female with PMH HTN, Hysterectomy was BIBA from [facility] where pt lives in an independent living apartment for complaint of lower abdominal pain that started earlier today. Pt at this time is not able to provide any history as she appears to have expressive aphasia, difficulty with work finding and word salad the majority of the conversation. Pt being admitted with enteritis, cholelithiasis without acute cholecystitis and word finding difficulty with baseline new confusion. Enteritis No leukocytosis, fever, and N/V have resolved, no evidence for sepsis on admission (LA WNL, no tachypnea, tachycardia, hypoxia) GI consulted Pt on Zosyn 4.5 G IV Q6H BC IVF continue LR 125 mls per hour, LA 2.2, repeat pending NPO pain mgmt as needed Will send stool panel if pt has any diarrhea, none reported Cholelithiasis without acute cholecystitis No acute intervention required currently Lipase WNL Word finding difficulty, new baseline confusion (per family) CT HEAD no acute findings but notes Hyperostosis frontalis internal audit manager and Mild chronic periventricular microvascular ischemic disease ? MRI in AM if no improvement No underlying acute metabolic concerns currently H/H is elevated, review CBC in AM Neurology consulted ECG NSR Lipid panel and A1C pending OT to assess MMSE Not related to pain meds as pt was wandering ED prior to receiving morphine Ammonia pending, LFTs WNL UA negative for UTI Daughter confirms no history of dementia Elevated H/H No hx of polycythemia vera Will check iron studies, erythropoeitin level Heme consult if needed CBC in AM HTN Amlodipine and Lisinopril confirmed with HCP Pt currently NPO, will use hydralazine IV prn for systolic over 160 DVT PRophylaxis: held until CT head completed MED REC COMPELTED DNR DNI per HCP Pt requires admission for at least 2 midnights for IV ABX, expert consultation for GI and possible neuro issues. Quality Stroke Does the patient have a stroke diagnosis?: No Reason for No Anti-thrombotic by Day Two: N/A - Med Ordered VTE Prior VTE?: No VTE Risk Level:: Medical - moderate - high VTE Device Contraindication: N/A - Device Ordered VTE Drug Contraindication: N/A - Med Ordered
[2025-04-07 20:53] LABS: Reflex Lactate? Lactic Acid Added
[2025-04-07 21:36] LABS: Ammonia 17 umol/L (13-55)
[2025-04-07 21:44] LABS: ~Lactic Acid-LAB USE ONLY 1.2 mmol/L (0.5-2.0)
[2025-04-07 22:30] LABS: Iron 80 mcg/dL (30-160); Percent Iron Saturation 30 % (15-50); Total Iron Binding Capacity 263 mcg/dL (228-428); Unsaturated Iron Binding 183 ug/dL
[2025-04-08] VITALS (7 sets, daily range): BP systolic 123–147; BP diastolic 63–79; PULSE 63–85; RESP 12–20; TEMP 36.1–36.7; O2SAT 93–97; BMI 28.1
[2025-04-08] MEDS: Lactated Ringers 1,000 ML 125 ML IVCONT ×3 (03:08→21:08)
[2025-04-08 06:13] LABS: MANUAL DIFF FLAG NO
[2025-04-08 06:35] LABS: Hematocrit 45.6 % (37.0-47.0); Hemoglobin 15.4 g/dl (12.0-16.0); Hemoglobin A1C 169.8248 umol/L; Imm Gran Abs Auto 0.03 X10*3/uL (0.00-0.03); Imm Gran Pct Auto 0.3 % (0.0-0.4); Lymphocytes Absolute Auto 1.0 X10*3/uL (1.2-4.9); Mean Corpuscular HGB Conc 33.8 g/dl (31.0-35.0); Mean Corpuscular Hemoglobin 31.2 pg (27.0-33.0); Mean Corpuscular Volume 92.5 fL (80.0-98.0); NRBC Abs Auto 0.000 X10*3/uL (0.0-0.012); NRBC Pct Auto 0.0 /100WBC (0.0-0.2); Platelet Count 196 X10*3/uL (160-400); Red Blood Count 4.93 X10*6/uL (4.20-5.50); Total Hemoglobin (HGBA1C) 3880.4689 umol/L; White Blood Count 8.8 X10*3/uL (4.8-10.8)
[2025-04-08 06:43] LABS: Alanine Aminotransferase 13 U/L (0-31); Albumin Level 3.7 g/dL (3.5-5.0); Anion Gap 12 (12-20); Aspartate Amino Transferase 21 U/L (5-31); Blood Urea Nitrogen 14 mg/dL (9-16); Calcium 9.0 mg/dL (8.4-10.2); Carbon Dioxide 25 mmol/L (22-29); Chloride 108 mmol/L (96-108); Cholesterol 203 mg/dL (<200); Creatinine Clr Calc Pharmacy 40.0; Estimated Glomerular Filt Rate > 60; HDL Cholesterol 62 mg/dL (>40); Potassium 4.3 mmol/L (3.3-5.1); Sodium 141 mmol/L (135-145); Total Protein 5.9 g/dL (6.5-8.0); Triglycerides 70 mg/dL (<150)
[2025-04-08 07:06] LABS: Alkaline Phosphatase 75 U/L (39-117)
--- NOTE | 2025-04-08 07:28 | PHA.MEDREC ---
Pharmacy Consult ? Medication Reconciliation Pharmacy has completed the medication reconciliation. Used pharmacy claims since patient unable to confirm. Both meds were filled got 90 day supply recently.
[2025-04-08] MEDS: 0.9 % Sodium Chloride Flush 3 ML SYRINGE IVFLUSH (07:41)
--- NOTE | 2025-04-08 11:25 | MHC.CM.PN ---
IMM DELIVERED CM MET WITH PT/FAMILY (DAUGHTER/HCP AND SON) AT BEDSIDE. PT UNABLE TO PARTICIPATE IN ASSESSMENT DUE TO CONFUSION. PT IS FUNCTIONALLY INDEPENDENT AT BASELINE. NO SERVICES OR DME. + HCP (CM TO REQUEST COPY FROM [facility] [place]) PCP [facility] UNSURE OF NEW PROVIDER'S NAME. DP: TBD, ? HOME WITH FAMILY SUPERVISION VS STAY WITH FAMILY MEMBER? DISCUSSION ONGOING WITH FAMILY REGARDING PLAN. FAMILY TO TRANSPORT. CM WILL CONTINUE TO FOLLOW FOR ANY CHANGE TO DC PLAN/NEEDS.
--- NOTE | 2025-04-08 15:59 | HO.PM.IMPN ---
Subjective Subjective Date of Service: 04/08/25 Interval History: Patient seen examined at bedside this morning, in no acute respiratory distress. Continues with expressive aphasia, on labs, WBC 8.8, A1c 6.2, LDL 127, cholesterol 203, UA with trace leukocyte esterase and hyaline casts. Patient at this time denies any abdominal pain. Head CT with mild chronic periventricular microvascular ischemic disease, with no acute intracranial findings. Spoke with family at bedside, mentioned that patient is alert and oriented x3, word-finding difficulty his new onset. Review of Systems Review of Systems: Yes all other systems are reviewed and are negative Physical Exam Exam: Exam: General: AxOx2, No acute distress Head: AT/NC ENT: Moist mucous membranes Neck: supple CVS; RRR, S1 S2 normal Lungs: Clear bilateral breath sounds, no wheezes or crackles Abd: Soft non tender, non distended Ext: No edema and no calf tenderness MSK: moving all 4 limbs Skin: No cyanosis or edema Psych: Cooperative with exam Neurology: expressive aphasia Vital Signs: Vital Signs: Last Vital Signs Temp 97.9 F 04/08/25 15:58 Pulse 67 04/08/25 15:58 Resp 18 04/08/25 15:58 BP 144/71 H 04/08/25 15:58 Pulse Ox 94 04/08/25 15:58 O2 Del Method Room Air 04/08/25 15:58 BMI result Body Mass Index 28.1 Objective Data Active Medications Acetaminophen (Acetaminophen 325 Mg Tablet) 650 mg PO Q6H PRN PRN Reason: Pain, Mild 1-3,fever,headache Albuterol/Ipratropium (Albuterol/Iprat 2.5/0.5mg 3 Ml Ampul.Neb) 3 ml INHALE RQ4H PRN PRN Reason: Shortness of Breath/Wheezing Calcium Carbonate (Calcium Carbonate 750 Mg Tab.Chew) 750 mg PO Q4H PRN PRN Reason: Heartburn Enoxaparin Sodium (Enoxaparin Sodium 40 Mg/0.4 Ml Syringe) 40 mg SUBCUT Q24H [facility] Last Admin: 04/08/25 07:44 Dose: 40 mg Documented By: MIKAEL Hydromorphone HCl (Hydromorphone Hcl 1 Mg/Ml Syringe) 1 mg IVPUSH Q3H PRN; Protocol PRN Reason: Pain, Severe (Pain Scale 7-10) Last Admin: 04/08/25 03:14 Dose: 1 mg Documented By: ESTEVAN Hydromorphone HCl (Hydromorphone Hcl 0.5 Mg/0.5 Ml Syringe) 0.5 mg IVPUSH Q3H PRN; Protocol PRN Reason: Pain, Moderate(Pain Scale 4-6) Last Admin: 04/08/25 09:55 Dose: 0.5 mg Documented By: MIKAEL Lactated Ringer's (Lr) 1,000 mls @ 125 mls/hr IVCONT .Q8H [facility] Last Admin: 04/08/25 12:26 Dose: 125 mls/hr Documented By: MIKAEL Piperacillin Sod/Tazobactam (Sod 4.5 gm/ Sodium Chloride) 100 mls @ 200 mls/hr IV Q6H [facility] Last Infusion: 04/08/25 15:12 Dose: Infused Documented By: MIKAEL Magnesium Hydroxide (Milk Of Magnesia 30 Ml Oral.Susp) 30 ml PO DAILY PRN PRN Reason: Constipation Melatonin (Melatonin 3 Mg Tablet) 6 mg PO BEDTIME PRN PRN Reason: Insomnia Ondansetron HCl (Ondansetron Hcl 4 Mg/2 Ml Vial) 4 mg IVPUSH Q8H PRN PRN Reason: Nausea and Vomiting Last Admin: 04/08/25 09:54 Dose: 4 mg Documented By: MIKAEL Polyethylene Glycol (Polyethylene Glycol 3350 17 Gm Powd.Pack) 17 gm PO DAILY PRN PRN Reason: Constipation Sodium Chloride (0.9 % Sodium Chloride Flush 3 Ml Syringe) [facility] Last Admin: 04/08/25 15:34 Dose: Not Given Documented By: MATT Non-Admin Reason: IV Running Labs 04/08/25 05:33 04/08/25 05:33 Labs: Laboratory Results - last 24 hr 04/07/25 04/07/25 04/07/25 14:56 17:10 18:50 MCV MCH MCHC RDW Plt Count MPV Immature Gran % (Auto) Neut % (Auto) Lymph % (Auto) Gonzales % (Auto) Eos % (Auto) Baso % (Auto) Lymph # (Auto) Gonzales # (Auto) Eos # (Auto) Baso # (Auto) Abs Immat Gran (auto) Absolute Neuts (auto) Absolute Nucleated RBC Nucleated RBC % (auto) ESR Anion Gap Estim Creat Clear Calc Estimated GFR Random Glucose Estimat Average Glucose Hemoglobin A1c % Lactic Acid 2.1 H* Lactic Acid F/U @ 2Hr Calcium Iron 80 TIBC 263 % Saturation 30 Unsat Iron Binding 183 Total Bilirubin AST ALT Alkaline Phosphatase 90 Ammonia C-Reactive Protein Total Protein Albumin Triglycerides Cholesterol LDL Cholesterol, Calc HDL Cholesterol Urine Color Yellow Urine Appearance Clear Urine pH 7.0 Ur Specific Innis 1.025 Urine Protein Trace Urine Glucose (UA) 250 H Urine Ketones 15 Urine Blood Negative Urine Nitrite Negative Ur Leukocyte Esterase Trace H Urine RBC 0-2 Urine WBC 0-5 Ur Squamous Epith Cells 0-2 Urine Bacteria None Seen Hyaline Casts 0-2 04/07/25 04/07/25 04/08/25 19:01 21:26 05:33 MCV 92.5 MCH 31.2 MCHC 33.8 RDW 13.7 Plt Count 196 MPV 9.4 Immature Gran % (Auto) 0.3 Neut % (Auto) 80.9 H Lymph % (Auto) 11.1 L Gonzales % (Auto) 7.4 Eos % (Auto) 0.1 Baso % (Auto) 0.2 Lymph # (Auto) 1.0 L Gonzales # (Auto) 0.7 Eos # (Auto) 0.0 Baso # (Auto) 0.0 Abs Immat Gran (auto) 0.03 Absolute Neuts (auto) 7.1 Absolute Nucleated RBC 0.000 Nucleated RBC % (auto) 0.0 ESR 2 Anion Gap 12 Estim Creat Clear Calc 40.0 Estimated GFR > 60 Random Glucose 135 H Estimat Average Glucose 131 Hemoglobin A1c % 6.2 H Lactic Acid Lactic Acid F/U @ 2Hr 1.2 Calcium 9.0 D Iron TIBC % Saturation Unsat Iron Binding Total Bilirubin 1.7 H AST 21 ALT 13 Alkaline Phosphatase 75 Ammonia 17 C-Reactive Protein 0.22 Total Protein 5.9 L Albumin 3.7 Triglycerides 70 Cholesterol 203 H LDL Cholesterol, Calc 127 H HDL Cholesterol 62 Urine Color Urine Appearance Urine pH Ur Specific Innis Urine Protein Urine Glucose (UA) Urine Ketones Urine Blood Urine Nitrite Ur Leukocyte Esterase Urine RBC Urine WBC Ur Squamous Epith Cells Urine Bacteria Hyaline Casts Assessment and Plan (1) Aphasia: Status: Acute (2) Toxic metabolic encephalopathy: Status: Acute (3) Enteritis: Status: Acute (4) HTN (hypertension): Status: Acute (5) Cholelithiasis: Status: Acute Plan Assessment: 89-year-old female with past medical history significant for HTN, hysterectomy who was BIBA from independent living for worsening abdominal pain. The ED found to have word-finding difficulty. CT scan with chronic periventricular microvascular ischemic disease. Expressive aphasia New onset cognitive dysfunction or toxic metabolic encephalopathy CT scan with mild chronic periventricular microvascular ischemic disease -MRI ordered to rule out any CVA -neurology consulted, awaiting further recommendations Hypertension, chronic -continue hydralazine if SBP greater than 160, we will closely monitor and adjust medications accordingly, we will start home medications once patient is able to tolerate. Enteritis Ultrasound with cholelithiasis was CBD measuring [address] scan showing severe enteritis of small bowel with right lower quadrant with severe associated mesenteric edema. -continue Zosyn 4.5 g IV q.6 hours, IV fluids Quality Stroke Does the patient have a stroke diagnosis?: No Reason for No Anti-thrombotic by Day Two: N/A - Med Ordered VTE Prior VTE?: No VTE Risk Level:: Medical - moderate - high VTE Device Contraindication: N/A - Device Ordered VTE Drug Contraindication: N/A - Med Ordered
[2025-04-09] VITALS (9 sets, daily range): BP systolic 130–159; BP diastolic 58–80; PULSE 62–88; RESP 16–20; TEMP 36.6–37; O2SAT 91–95
--- NOTE | 2025-04-09 | EEG_ITS ---
Reason for Exam: altered mental status R41.82 Roomed Performed:?1st fl History: HTN, hysterectomy - Patient brought to ED for worsening abdominal pain. The ED found patient to have word-finding difficulty. Medication: acetaminophen, albuterol, calcium, enoxaparin, hydromorphone, magnesium, melatonin, ondansetron Technical description Photic stimulation: completed Hyperventilation:?omitted Behavioral state: cooperative, no aphasia noted State of Consciousness: awake and drowsy Skull defect: none Sedation: none Handedness: right Duration of study:?25 min 50 sec Description: This is a 16 channel EEG with an EKG lead. Patient is reported awake and drowsy during the tracing. Background EEG rhythm is low amplitude mixed theta to delta range with no obvious asymmetry or paroxysmal tendency. Photic stimulation does not produce any significant driving. Hyperventilation is is not performed. No sharp waves, spikes, asymmetric activity, or paroxysmal activity noted. Cardiac lead does not reveal any significant abnormality. Some lead and muscle artifacts are noted. Impression: Generalized slowing with no epileptic discharges. MTDD
[2025-04-09] MEDS: Lactated Ringers 1,000 ML 125 ML IVCONT ×2 (07:10→11:39)
[2025-04-09] MEDS: Aspirin Enteric Coated 81 MG TABLET.DR PO (08:40)
[2025-04-09] MEDS: 0.9 % Sodium Chloride Flush 3 ML SYRINGE IVFLUSH ×2 (08:43→19:47)
--- NOTE | 2025-04-09 09:19 | ECG_ITS ---
Test Reason : ams Blood Pressure : */* mmHG Vent. Rate : 70 BPM Atrial Rate : 70 BPM P-R Int : 154 ms QRS Dur : 72 ms QT Int : 396 ms P-R-T Axes : 60 14 65 degrees QTcB Int : 427 ms Normal sinus rhythm Normal ECG When compared to the previous EKG of No significant changes seen Referred By: Susnane Zamora Electronically Signed By: Prasad Berumen
[2025-04-09 09:32] LABS: Glucose, Whole Blood 122 mg/dL (60-115)
[2025-04-09 09:32] LABS: MANUAL DIFF FLAG NO
--- NOTE | 2025-04-09 09:32 | PM.EVENT ---
Event Note Date of Service: 04/09/25 Event Note: Rapid response was called, as patient was found to be poorly responsive. Patient with recent diagnosis of CVA. Stat labs ordered, head CT, ABG. TTE ordered and pending. EKG done at bedside normal sinus rhythm. On physical exam, obtunded however we will resist opening of eyes, movements, RRR, S1 S2 normal, Clear bilateral breath sounds, no wheezes or crackles, Soft non tender, non distended. We will await labs and imaging for further management. Time Spent With Patient Time: Total time managing care of this patient today ____ minutes.
[2025-04-09 09:38] LABS: VBG HCO3 24 mmol/L (22-26); VBG O2 % Saturation 90.0 %
[2025-04-09 09:38] LABS: Venous Blood Gas Refer to POC result
[2025-04-09 09:38] LABS: ABG HCO3 22 mmol/L (22-26); ABG O2 % Saturation 96.0 %
--- NOTE | 2025-04-09 09:40 | PC.NURSE ---
Pt. alert to self only this am, following simple directions, talking, walking, bedside speech evaluation done by this Nurse. Patient took her pills whole with thin liquids, asked for more apple sauce, withdrawn but answering questions even though confused. PT and this Nurse went in patient's room to find patient unresponsive, limp arms, RR was initiated, labs, ekg, and Imaging ordered. Pt. was in process of getting [facility] [place] with transportation already in the room.
[2025-04-09 09:51] LABS: Hematocrit 43.9 % (37.0-47.0); Hemoglobin 15.0 g/dl (12.0-16.0); Imm Gran Abs Auto 0.03 X10*3/uL (0.00-0.03); Imm Gran Pct Auto 0.3 % (0.0-0.4); Lymphocytes Absolute Auto 1.3 X10*3/uL (1.2-4.9); Mean Corpuscular HGB Conc 34.2 g/dl (31.0-35.0); Mean Corpuscular Hemoglobin 31.1 pg (27.0-33.0); Mean Corpuscular Volume 90.9 fL (80.0-98.0); NRBC Abs Auto 0.000 X10*3/uL (0.0-0.012); NRBC Pct Auto 0.0 /100WBC (0.0-0.2); Platelet Count 172 X10*3/uL (160-400); Red Blood Count 4.83 X10*6/uL (4.20-5.50); White Blood Count 8.6 X10*3/uL (4.8-10.8)
[2025-04-09 10:21] LABS: Anion Gap 11 (12-20); Blood Urea Nitrogen 15 mg/dL (9-16); Carbon Dioxide 21 mmol/L (22-29); Chloride 113 mmol/L (96-108); Creatinine Clr Calc Pharmacy 50.5; Estimated Glomerular Filt Rate > 60; Potassium 3.5 mmol/L (3.3-5.1); Sodium 141 mmol/L (135-145)
[2025-04-09 10:29] LABS: Calcium 7.9 mg/dL (8.4-10.2)
--- NOTE | 2025-04-09 11:12 | P.CNNE_ITS ---
History of Present Illness Data of Consult Service Date: 04/09/25 Primary Care Provider: Unknown Physician HPI Reason for consult: Word-finding difficulty 89 years old woman who was in hospital for abdominal pain but then was also noted to be confused, wandering in emergency room, and with not able to communicate well and was described as having ?word salad?. There was no previous history of similar symptoms. She was not febrile and did not have any significant metabolic abnormalities or any sign of infection. Head CT was done and then MRI of brain was done which revealed some findings prompting this consultation. When I saw her she was comfortable stating that she knew where she was. There was no sign of physical distress. Review of Systems 2 Review of Systems: Constitutional:?No fever, chills, fatigue, weight loss, or night sweats. HEENT:?No headache, vision changes, hearing loss, nasal congestion, sore throat. Cardiovascular:?No chest pain, palpitations, orthopnea, PND, or leg swelling. Respiratory:?No cough, shortness of breath, wheezing, or hemoptysis. Gastrointestinal:?No nausea, vomiting, abdominal pain, diarrhea, or constipation. Genitourinary:? Initial abdominal pain Musculoskeletal:?No joint pain, stiffness, weakness, or muscle aches. Neurological:? No prior similar symptoms Psychiatric:?No anxiety, depression, mood swings, sleep disturbance, or hallucinations. Endocrine:?No heat/cold intolerance, polydipsia, polyuria, or hair/skin changes. Hematologic/Lymphatic:?No easy bruising, bleeding, or lymphadenopathy. Integumentary (Skin):?No rash, lesions, itching, or color changes. Allergic/Immunologic:?No seasonal allergies, hives, or recurrent infections. [facility] Past Medical History Medical History (Updated 04/09/25 @ 11:16 by Anton Carmona MD) HTN (hypertension) Surgical History Surgical History H/O: hysterectomy Social History Social History Household Members: None Housing: Apartment Housing Other:: [address] Do you presently have visiting nurse or other home services: No Alcohol intake: never Patient Tobacco Use Status: Never used Tobacco Smoked in Last 30 Days: No Use of substances other than those prescribed or required for medical reasons: No Currently Displaying Signs/Symptoms of Drug Intoxication Withdrawal: No Have you been hit, kicked, punched, or otherwise hurt by someone within the past year? If so, by whom?: No Do you feel safe in your current relationship?: Yes Is there a partner from a previous relationship who is making you feel unsafe now?: No Are you made to feel afraid or neglected: No Advance Directives: No Advance Directives Information Provided: Yes Do you have a plan to hurt others: No Plan Recently lost weight without trying: Unsure Eating poorly because of decreased appetite: No Nutrition Risks: No Nutritional Risk Patient : No : No Poor oral hygiene: No service: No Travel History Ebola Risk: Travel/Contact With Anyone From Affected Area/s: No Has Patient Experienced Ebola Symptoms: No Meds Allergies Allergy/AdvReac Type Severity Reaction Status Date / Time No Known Allergies Allergy Verified 04/07/25 14:37 Active Medications: Current Medications Acetaminophen (Acetaminophen 325 Mg Tablet) 650 mg PO Q6H PRN PRN Reason: Pain, Mild 1-3,fever,headache Last Admin: 04/08/25 21:06 Dose: 650 mg Albuterol/Ipratropium (Albuterol/Iprat 2.5/0.5mg 3 Ml Ampul.Neb) 3 ml INHALE RQ4H PRN PRN Reason: Shortness of Breath/Wheezing Aspirin (Aspirin Enteric Coated 81 Mg Tablet.) 81 mg PO DAILY [facility] Last Admin: 04/09/25 08:40 Dose: 81 mg Atorvastatin Calcium (Atorvastatin Calcium 80 Mg Tablet) 80 mg PO DAILY [facility] Last Admin: 04/09/25 08:40 Dose: 80 mg Calcium Carbonate (Calcium Carbonate 750 Mg Tab.Chew) 750 mg PO Q4H PRN PRN Reason: Heartburn Clopidogrel Bisulfate (Clopidogrel Bisulfate 75 Mg Tablet) 75 mg PO ONCE [facility] Stop: 04/30/25 07:44 Enoxaparin Sodium (Enoxaparin Sodium 40 Mg/0.4 Ml Syringe) 40 mg SUBCUT Q24H [facility] Last Admin: 04/09/25 08:41 Dose: 40 mg Hydromorphone HCl (Hydromorphone Hcl 1 Mg/Ml Syringe) 1 mg IVPUSH Q3H PRN; Protocol PRN Reason: Pain, Severe (Pain Scale 7-10) Last Admin: 04/08/25 03:14 Dose: 1 mg Hydromorphone HCl (Hydromorphone Hcl 0.5 Mg/0.5 Ml Syringe) 0.5 mg IVPUSH Q3H PRN; Protocol PRN Reason: Pain, Moderate(Pain Scale 4-6) Last Admin: 04/08/25 09:55 Dose: 0.5 mg Lactated Ringer's (Lr) 1,000 mls @ 125 mls/hr IVCONT .Q8H [facility] Last Admin: 04/09/25 07:10 Dose: 125 mls/hr Piperacillin Sod/Tazobactam (Sod 4.5 gm/ Sodium Chloride) 100 mls @ 200 mls/hr IV Q6H [facility] Last Infusion: 04/09/25 09:39 Dose: Infused Magnesium Hydroxide (Milk Of Magnesia 30 Ml Oral.Susp) 30 ml PO DAILY PRN PRN Reason: Constipation Melatonin (Melatonin 3 Mg Tablet) 6 mg PO BEDTIME PRN PRN Reason: Insomnia Last Admin: 04/08/25 21:06 Dose: 6 mg Ondansetron HCl (Ondansetron Hcl 4 Mg/2 Ml Vial) 4 mg IVPUSH Q8H PRN PRN Reason: Nausea and Vomiting Last Admin: 04/08/25 09:54 Dose: 4 mg Polyethylene Glycol (Polyethylene Glycol 3350 17 Gm Powd.Pack) 17 gm PO DAILY PRN PRN Reason: Constipation Sodium Chloride (0.9 % Sodium Chloride Flush 3 Ml Syringe) 3 ml IVFLUSH QSHI Last Admin: 04/09/25 08:43 Dose: 3 ml Home Medications ?Medication ?Instructions ?Recorded ?Confirmed ?Last Taken ?Type amlodipine 10 mg tablet 10 mg PO DAILY 04/07/2503/24 Unknown History lisinopril 10 mg tablet 10 mg PO DAILY 04/07/2503/24 Unknown History Physical Exam 2 Vital Signs: Vital Signs: Last Vital Signs Temp 98.4 F 04/09/25 10:59 Pulse 88 04/09/25 10:59 Resp 18 04/09/25 10:59 BP 144/67 H 04/09/25 10:59 Pulse Ox 95 04/09/25 10:59 O2 Del Method Room Air 04/09/25 10:59 BMI result Body Mass Index 28.1 Neuro: Other: Mental Status: Alert and oriented to person, place, and time. Normal attention. Normal spontaneous speech, fluency, and comprehension. Cranial Nerves: CN II: Visual baumann full to confrontation, visual acuity intact. CN III, IV, : Pupils equal, round, reactive to light and accommodation. Extraocular movements are normal. CN V: Facial sensation is normal. CN VII: Facial movements symmetrical. CN VIII: Hearing intact to bedside conversation is normal. CN IX, X: Palate elevates symmetrically. CN XI: Shoulder shrug and head turn symmetrical. CN XII: Tongue midline without atrophy or fasciculations. Motor: No obvious focal lab abnormality. Reflexes: Deep tendon reflexes are trace to absent. Extrapyramidal: Full facial expressions and blinking. No rigidity. Movements are appropriate with no tremor or abnormality. Speech: Normal; no dysarthria or tremor. Results Labs 04/09/25 09:28 04/09/25 09:28 Labs: Short CBC 04/09/25 Range/Units 09:28 WBC 8.6 (4.8-10.8) X10*3/uL Hgb 15.0 (12.0-16.0) g/dl Hct 43.9 (37.0-47.0) % Plt Count 172 (160-400) X10*3/uL BMP 04/09/25 09:28 Sodium 141 Potassium 3.5 Chloride 113 H Carbon Dioxide 21 L BUN 15 Creatinine 0.69 Calcium 7.9 L D MRI of brain revealed mild chronic microvascular ischemic changes with no acute lesion. Microbiology Microbiology Results: Microbiology 04/07/25 19:01 Blood - Venous Blood Culture - Preliminary No growth after 24 hours. 04/07/25 18:50 Blood - Venous Blood Culture - Preliminary No growth after 24 hours. Assessment and Plan (1) Cerebral microvascular disease: Status: Acute (2) Word finding difficulty: Status: Acute 89 years old woman with chronic mild cerebral microvascular disease. There was no evidence of any acute lesion. 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 There was no obvious reason for encephalopathy from metabolic toxic reasons. An EEG is recommended. Procedures Date of Service Date of Service: 04/09/25
--- NOTE | 2025-04-09 12:00 | CA_ITS ---
Transthoracic Echocardiogram Patient (Last, First, Middle): Akila Nino, Gender: Female Date of : 1935 Age: 89 Procedure Date: 04/09/2025 Procedure Type: Transthoracic Echocardiogram Location: [facility] [place] Height: 157.48 cm Weight: 69.4 kg BSA: 1.71 m2 Heart Rate: 70 bpm BP: 147 / 70 mmHg Filler Machine Operator: SHELBIE Referring MD: Susanne ROBERT Symptoms: stroke protocol Study Quality: Technically Difficult, Limitednot able to tolerate ECG Rhythm: Sinus Conclusions: - Limited echo because the patient terminated the test. - LV function appears to be normal. Findings Procedure Information The study quality is limited by the patients inability to tolerate the test and an uncooperative patient. Left Ventricle Normal left ventricular size, thickness, and systolic function. The visually estimated ejection fraction is between 65-70%. Regional wall motion abnormalities can not be excluded due to suboptimal endocardial definition. Diastolic function is indeterminate on the basis of available data. Right Ventricle The right ventricle was not well visualized. Aortic Valve There is a normal trileaflet aortic valve. Great Vessels All visible segments of the aorta are normal in size. Pericardium/Pleural Prominent epicardial adipose tissue noted. There is no evidence of pericardial effusion. Prior Study Comparison No prior study available for comparison. Measurements 2D Linear Measurements IVSd: 0.97 0.6-0.9/0.6-1.0 cm LVIDd: 3.10 3.9-5.3/4.2-5.9 cm LVIDd Index: 1.81 2.4-3.2/2.2-3.1 cm/m2 LVIDs: 1.55 2.0-3.6 cm LVPWd: 0.94 0.7-1.1 cm LA Diam: 2.50 2.7-3.8/3.0-4.0 cm LAIDs Index: 1.46 1.5-2.3 cm/m2 LV Mass: 100.27 67-162/88-224 g LV Mass Index: 58.64 43-95/49-115 g/m2 LVOT Diam: 1.80 3.0+(-)1.3 cm LVOT LVOT Diam: 1.80 LVOT Area: 2.54 Great Vessels Aorta Sinus of Valsalva: 2.80 2.0-3.5 cm Ao Asc: 3.00 2.1-3.4 cm Pulmonary Valve PV Pk Corby: 0.84 Peak PV Grad: 3.00 Updated in Other Vendor System with Status of Final Prasad Berumen MD electronically signed on 04/09/2025 11:36:04 PM with status of Final
--- NOTE | 2025-04-09 13:03 | P.PNIM_ITS ---
Subjective Subjective Date of Service: 04/09/25 Interval History: Patient seen examined at bedside this morning, with MRI brain showing left and right frontal lobes single lacunar infarcts. Patient states that she feels well, wishes to be discharged home. Earlier today, patient had episode of encephalopathy, stat labs no leukocytosis, pH no acidosis, stat CT scan with no acute infarcts. Spoke with daughter at bedside. Physical Exam 2 Exam: Exam: General: AxOx2, No acute distress Head: AT/NC ENT: Moist mucous membranes Neck: supple CVS; RRR, S1 S2 normal Lungs: Clear bilateral breath sounds, no wheezes or crackles Abd: Soft non tender, non distended Ext: No edema and no calf tenderness MSK: moving all 4 limbs Skin: No cyanosis or edema Psych: Cooperative with exam Neurology: expressive aphasia, improved Vital Signs: Vital Signs: Last Vital Signs Temp 98.4 F 04/09/25 10:59 Pulse 88 04/09/25 10:59 Resp 18 04/09/25 10:59 BP 144/67 H 04/09/25 10:59 Pulse Ox 95 04/09/25 10:59 O2 Del Method Room Air 04/09/25 10:59 BMI result Body Mass Index 28.1 Objective Data Active Medications Acetaminophen (Acetaminophen 325 Mg Tablet) 650 mg PO Q6H PRN PRN Reason: Pain, Mild 1-3,fever,headache Last Admin: 04/08/25 21:06 Dose: 650 mg Documented By: ESTEVAN Albuterol/Ipratropium (Albuterol/Iprat 2.5/0.5mg 3 Ml Ampul.Neb) 3 ml INHALE RQ4H PRN PRN Reason: Shortness of Breath/Wheezing Aspirin (Aspirin Enteric Coated 81 Mg Tablet.) 81 mg PO DAILY [facility] Last Admin: 04/09/25 08:40 Dose: 81 mg Documented By: MIKAEL Atorvastatin Calcium (Atorvastatin Calcium 80 Mg Tablet) 80 mg PO DAILY [facility] Last Admin: 04/09/25 08:40 Dose: 80 mg Documented By: MIKAEL Calcium Carbonate (Calcium Carbonate 750 Mg Tab.Chew) 750 mg PO Q4H PRN PRN Reason: Heartburn Clopidogrel Bisulfate (Clopidogrel Bisulfate 75 Mg Tablet) 75 mg PO ONCE [facility] Stop: 04/30/25 07:44 Last Admin: 04/09/25 11:47 Dose: 75 mg Documented By: CINDY Enoxaparin Sodium (Enoxaparin Sodium 40 Mg/0.4 Ml Syringe) 40 mg SUBCUT Q24H [facility] Last Admin: 04/09/25 08:41 Dose: 40 mg Documented By: MIKAEL Hydromorphone HCl (Hydromorphone Hcl 1 Mg/Ml Syringe) 1 mg IVPUSH Q3H PRN; Protocol PRN Reason: Pain, Severe (Pain Scale 7-10) Last Admin: 04/08/25 03:14 Dose: 1 mg Documented By: ESTEVAN Hydromorphone HCl (Hydromorphone Hcl 0.5 Mg/0.5 Ml Syringe) 0.5 mg IVPUSH Q3H PRN; Protocol PRN Reason: Pain, Moderate(Pain Scale 4-6) Last Admin: 04/08/25 09:55 Dose: 0.5 mg Documented By: MIKAEL Lactated Ringer's (Lr) 1,000 mls @ 125 mls/hr IVCONT .Q8H [facility] Last Admin: 04/09/25 11:39 Dose: 125 mls/hr Documented By: CINDY Piperacillin Sod/Tazobactam (Sod 4.5 gm/ Sodium Chloride) 100 mls @ 200 mls/hr IV Q6H [facility] Last Infusion: 04/09/25 09:39 Dose: Infused Documented By: MIKAEL Magnesium Hydroxide (Milk Of Magnesia 30 Ml Oral.Susp) 30 ml PO DAILY PRN PRN Reason: Constipation Melatonin (Melatonin 3 Mg Tablet) 6 mg PO BEDTIME PRN PRN Reason: Insomnia Last Admin: 04/08/25 21:06 Dose: 6 mg Documented By: ESTEVAN Ondansetron HCl (Ondansetron Hcl 4 Mg/2 Ml Vial) 4 mg IVPUSH Q8H PRN PRN Reason: Nausea and Vomiting Last Admin: 04/09/25 12:45 Dose: 4 mg Documented By: CINDY Polyethylene Glycol (Polyethylene Glycol 3350 17 Gm Powd.Pack) 17 gm PO DAILY PRN PRN Reason: Constipation Sodium Chloride (0.9 % Sodium Chloride Flush 3 Ml Syringe) 3 ml IVFLUSH QSHIFT [facility] Last Admin: 04/09/25 08:43 Dose: 3 ml Documented By: MIKAEL Labs 04/09/25 09:28 04/09/25 09:28 Labs: Laboratory Results - last 24 hr 04/09/25 04/09/25 04/09/25 09:13 09:28 09:31 MCV 90.9 MCH 31.1 MCHC 34.2 RDW 13.6 Plt Count 172 MPV 9.0 L Immature Gran % (Auto) 0.3 Neut % (Auto) 75.5 H Lymph % (Auto) 15.5 L [place] % (Auto) 8.4 Eos % (Auto) 0.1 Baso % (Auto) 0.2 Lymph # (Auto) 1.3 [place] # (Auto) 0.7 Eos # (Auto) 0.0 Baso # (Auto) 0.0 Abs Immat Gran (auto) 0.03 Absolute Neuts (auto) 6.5 Absolute Nucleated RBC 0.000 Nucleated RBC % (auto) 0.0 O2 Saturation ABG pH at Pt Temp ABG pCO2 at Pt Temp ABG pO2 at Pt Temp ABG HCO3 ABG Base Excess (Actual) VBG pH VBG pCO2 VBG pO2 VBG HCO3 VBG O2 Saturation VBG Base Excess Anion Gap 11 L Estim Creat Clear Calc 50.5 Estimated GFR > 60 POC Glucose 122 H Random Glucose 108 Calcium 7.9 L D Hold Yellow Top See Note 04/09/25 04/09/25 09:34 09:35 MCV MCH MCHC RDW Plt Count MPV Immature Gran % (Auto) Neut % (Auto) Lymph % (Auto) [place] % (Auto) Eos % (Auto) Baso % (Auto) Lymph # (Auto) [place] # (Auto) Eos # (Auto) Baso # (Auto) Abs Immat Gran (auto) Absolute Neuts (auto) Absolute Nucleated RBC Nucleated RBC % (auto) O2 Saturation 96.0 ABG pH at Pt Temp 7.46 H ABG pCO2 at Pt Temp 31 L ABG pO2 at Pt Temp 77 L ABG HCO3 22 ABG Base Excess (Actual) -0.1 VBG pH 7.47 H VBG pCO2 32 VBG pO2 62 VBG HCO3 24 VBG O2 Saturation 90.0 VBG Base Excess 1.2 Anion Gap Estim Creat Clear Calc Estimated GFR POC Glucose Random Glucose Calcium Hold Yellow Top Microbiology Microbiology Results: Microbiology 04/07/25 19:01 Blood Culture - Preliminary Blood - Venous No growth after 24 hours. 04/07/25 18:50 Blood Culture - Preliminary Blood - Venous No growth after 24 hours. Assessment and Plan (1) Stroke: Status: Acute (2) Enteritis: Status: Acute (3) Cerebral microvascular disease: Status: Acute (4) Aphasia: Status: Acute Plan Assessment: 89-year-old female with past medical history significant for HTN, hysterectomy who was BIBA from independent living for worsening abdominal pain. The ED found to have word-finding difficulty. CT scan with chronic periventricular microvascular ischemic disease. With MRI showing left and right frontal lobe single lacunar infarcts CVA of left and right frontal lobe single lacunar infarctions Expressive aphasia Encephalopathy, improving CT scan with mild chronic periventricular microvascular ischemic disease -MRI with left and right frontal lobe single lacunar infarctions -we will initiate for 21 days, later transitioned to aspirin 81 mg, Plavix initiated -atorvastatin 80 mg q.h.s. ordered -TTE ordered to rule out PFO -place on telemetry, to rule out paroxysmal atrial fibrillation -neurology consulted, awaiting further recommendations -PT/OT/LEGAL INVESTIGATOR to assess Hypertension, chronic -continue hydralazine if SBP greater than 160, we will closely monitor and adjust medications accordingly, we will start home medications once patient is able to tolerate. Enteritis, improving Ultrasound with cholelithiasis was CBD measuring [address] scan showing severe enteritis of small bowel with right lower quadrant with severe associated mesenteric edema. -continue Zosyn 4.5 g IV q.6 hours, IV fluids Quality Stroke Does the patient have a stroke diagnosis?: No Reason for No Anti-thrombotic by Day Two: N/A - Med Ordered VTE Prior VTE?: No VTE Risk Level:: Medical - moderate - high VTE Device Contraindication: N/A - Device Ordered VTE Drug Contraindication: N/A - Med Ordered
--- NOTE | 2025-04-09 13:49 | MHC.SL.SWA ---
Speech Pathologist Impression: Aphasia, Swallow WFL Dysphasia Diet Status: Upgrade to REGULAR/THIN Liquid Consistency and Strategies for Safe Swallow: Liquid Intake Recommendation: Thin Solid Food Consistency: Dietary Recommendations: Regular Oral Medication Intake: Whole with Liquid Please contact the pharmacy regarding appropriate crushable or liquid drug formulations that are available whenever modified delivery is recommended. Supervision While Eating and Drinking for Safe Swallow: Direct Supervision (1:1) Recommendation for Speech: Inpatient Speech Therapy Comment: Patient w/ mild expressive aphasia Frequency/Duration: M-F Date Range for Service Req: Timeline to reassess: Furnace Hand Clinican/Clinical Fellow: No Supervisory Statement: I have reviewed and agree with the student/clinical fellow's documentation: N/A Speech Language Pathologist: Jany Escudero M.A., CCC-RENAL DIALYSIS RN
--- NOTE | 2025-04-09 14:47 | MHC.STROKE ---
Met with patient in 458. Attempted to provide stroke education to patient. Booklet given. Patient was extremely nauseous and vomiting. Will attempt to come back at a later time
[2025-04-10] VITALS (13 sets, daily range): BP systolic 107–183; BP diastolic 56–86; PULSE 54–170; RESP 16–18; TEMP 36.5–37.1; O2SAT 91–95
--- NOTE | 2025-04-10 | ECG_ITS ---
Test Reason : SVT Blood Pressure : */* mmHG Vent. Rate : 138 BPM Atrial Rate : * BPM P-R Int : * ms QRS Dur : 68 ms QT Int : 304 ms P-R-T Axes : * 38 42 degrees QTcB Int : 460 ms Atrial fibrillation with rapid ventricular response with premature ventricular or aberrantly conducted complexes Abnormal ECG When compared with ECG of 10-Apr-2025 15:03, Atrial fibrillation has replaced Sinus rhythm Referred By: Indio Jones Electronically Signed By: Prasad Berumen
--- NOTE | 2025-04-10 04:40 | PC.NURSE ---
Patient with SBP in 180's with agitation. 133/63 when she was calm and rechecked.
[2025-04-10] MEDS: Aspirin Enteric Coated 81 MG TABLET.DR PO (07:58)
--- NOTE | 2025-04-10 09:37 | PC.NURSE ---
Addendum entered by Arlette Burns RN 04/10/25 16:53: Pt converted to SB/SR w/PVCs Addendum entered by Arlette Burns RN 04/10/25 16:13: Compazine was effective for pt nausea. At 1500 pt HR up and down 130-170s BP 136/86 -pt assessed - asymptomatic at this time, notified- EKG taken (see reports as one showed ST w/premature supraventricular complexes and consecutive premature ventricular complexes, then able to capture afib RvR on EKG. MD notified. 5 mg IV lopressor ordered and admin. HR then sustaining mostly 130-150s. BP stable. 120/69. MD stated they talked to cardio and will start on PO metoprolol BID no need for drip at this time. (admined PO dose). Pt still asymptomatic. Inquired about when to michelle RUBI of HR - stated to notify if HR >170, pt hypotensive of symptomatic. Cardio consult was placed by provider. Will cont to closely monitor HR and other VS Addendum entered by Arlette Burns RN 04/10/25 13:25: Pt persistant n/v- notified as pt received zofran with little effect. 1 time doze 5mg compazine ordered. Effectiveness pending Addendum entered by Arlette Burns RN 04/10/25 13:02: During afternoon pt much more awake and alert &pleasant but still confused, knew she was in the hospital but unsure which one. Not able to tell me month or year but able to tell me going into fall. Pt vomiting a few times- prn zofran admin. Pt family at bedside. Original Note: Upon doing neuro checks this morning. Pt refusing to answer some questions, asking patients birthday pt states what difference does it make? when asked about where we are she states youre holding me hostage but you wont believe anything I say Refuses to participate. Pt got OOB unplugged camera (able to plug back in and re-edu patient on use) pt upset, stating just wants to sleep. Pt back to bed, resting at this time. Did take AM meds. [facility] fall risk measures remain in place.
--- NOTE | 2025-04-10 13:16 | P.PNIM_ITS ---
Subjective Subjective Date of Service: 04/10/25 Interval History: Patient seen examined at bedside this morning, patient states that she wishes to go home, that the hospital me against my will, I would like to be seen by my doctor in my home. 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 EEG done yesterday showing generalized slowing with no epileptic discharges. Patient yesterday had episode of elevated blood pressure. Per staff, patient refused PT/OT. Review of Systems Review of Systems: Yes all other systems are reviewed and are negative Physical Exam 2 Exam: Exam: General: AxOx2, No acute distress Head: AT/NC ENT: Moist mucous membranes Neck: supple CVS; RRR, S1 S2 normal Lungs: Clear bilateral breath sounds, no wheezes or crackles Abd: Soft non tender, non distended Ext: No edema and no calf tenderness MSK: moving all 4 limbs Skin: No cyanosis or edema Psych: poor insight Neurology: expressive aphasia, improved Vital Signs: Vital Signs: Last Vital Signs Temp 98.5 F 04/10/25 11:30 Pulse 67 04/10/25 11:30 Resp 18 04/10/25 11:30 BP 130/66 04/10/25 11:30 Pulse Ox 94 04/10/25 11:30 O2 Del Method Room Air 04/10/25 11:30 BMI result Body Mass Index 28.1 Objective Data Active Medications Acetaminophen (Acetaminophen 325 Mg Tablet) 650 mg PO Q6H PRN PRN Reason: Pain, Mild 1-3,fever,headache Last Admin: 04/10/25 06:18 Dose: 325 mg Documented By: JEWEL Comments: patient would only like 325mg Albuterol/Ipratropium (Albuterol/Iprat 2.5/0.5mg 3 Ml Ampul.Neb) 3 ml INHALE RQ4H PRN PRN Reason: Shortness of Breath/Wheezing Aspirin (Aspirin Enteric Coated 81 Mg Tablet.) 81 mg PO DAILY [facility] Last Admin: 04/10/25 07:58 Dose: 81 mg Documented By: CINDY Atorvastatin Calcium (Atorvastatin Calcium 80 Mg Tablet) 80 mg PO DAILY [facility] Last Admin: 04/10/25 07:58 Dose: 80 mg Documented By: CINDY Calcium Carbonate (Calcium Carbonate 750 Mg Tab.Chew) 750 mg PO Q4H PRN PRN Reason: Heartburn Clopidogrel Bisulfate (Clopidogrel Bisulfate 75 Mg Tablet) 75 mg PO ONCE [facility] Stop: 04/30/25 07:44 Last Admin: 04/09/25 11:47 Dose: 75 mg Documented By: CINDY Enoxaparin Sodium (Enoxaparin Sodium 40 Mg/0.4 Ml Syringe) 40 mg SUBCUT Q24H [facility] Last Admin: 04/10/25 07:58 Dose: 40 mg Documented By: CINDY Hydromorphone HCl (Hydromorphone Hcl 1 Mg/Ml Syringe) 1 mg IVPUSH Q3H PRN; Protocol PRN Reason: Pain, Severe (Pain Scale 7-10) Last Admin: 04/09/25 17:20 Dose: 1 mg Documented By: CINDY Hydromorphone HCl (Hydromorphone Hcl 0.5 Mg/0.5 Ml Syringe) 0.5 mg IVPUSH Q3H PRN; Protocol PRN Reason: Pain, Moderate(Pain Scale 4-6) Last Admin: 04/08/25 09:55 Dose: 0.5 mg Documented By: MIKAEL Piperacillin Sod/Tazobactam (Sod 4.5 gm/ Sodium Chloride) 100 mls @ 200 mls/hr IV Q6H [facility] Last Infusion: 04/10/25 08:32 Dose: Infused Documented By: CINDY Lisinopril (Lisinopril 10 Mg Tablet) 10 mg PO DAILY [facility]; Protocol Last Admin: 04/10/25 07:58 Dose: 10 mg Documented By: CINDY Magnesium Hydroxide (Milk Of Magnesia 30 Ml Oral.Susp) 30 ml PO DAILY PRN PRN Reason: Constipation Melatonin (Melatonin 3 Mg Tablet) 6 mg PO BEDTIME PRN PRN Reason: Insomnia Last Admin: 04/08/25 21:06 Dose: 6 mg Documented By: ESTEVAN Ondansetron HCl (Ondansetron Hcl 4 Mg/2 Ml Vial) 4 mg IVPUSH Q8H PRN PRN Reason: Nausea and Vomiting Last Admin: 04/10/25 12:38 Dose: 4 mg Documented By: CINDY Polyethylene Glycol (Polyethylene Glycol 3350 17 Gm Powd.Pack) 17 gm PO DAILY PRN PRN Reason: Constipation Sodium Chloride (0.9 % Sodium Chloride Flush 3 Ml Syringe) 3 ml IVFLUSH QSHIFT [facility] Last Admin: 04/10/25 08:21 Dose: Not Given Documented By: CINDY Non-Admin Reason: IV Running Labs 04/09/25 09:28 04/09/25 09:28 Labs: Laboratory Results - last 24 hr 04/08/25 05:33 Erythropoietin 6.0 Microbiology Microbiology Results: Microbiology 04/07/25 19:01 Blood Culture - Preliminary Blood - Venous No growth after 48 hours. 04/07/25 18:50 Blood Culture - Preliminary Blood - Venous No growth after 48 hours. Assessment and Plan (1) Enteritis: Status: Acute (2) Stroke: Status: Acute (3) Aphasia: Status: Acute (4) HTN (hypertension): Status: Acute Plan Assessment: 89-year-old female with past medical history significant for HTN, hysterectomy who was BIBA from independent living for worsening abdominal pain. The ED found to have word-finding difficulty. CT scan with chronic periventricular microvascular ischemic disease. With MRI showing left and right frontal lobe single lacunar infarcts. 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 Hypertension, chronic -Will initiate home dose lisinopril 10mg -continue hydralazine if SBP greater than 160, we will closely monitor and adjust medications accordingly. Enteritis, improving Ultrasound with cholelithiasis was CBD measuring [address] scan showing severe enteritis of small bowel with right lower quadrant with severe associated mesenteric edema. -continue Zosyn 4.5 g IV q.6 hours, IV fluids Quality Stroke Does the patient have a stroke diagnosis?: No Reason for No Anti-thrombotic by Day Two: N/A - Med Ordered VTE Prior VTE?: No VTE Risk Level:: Medical - moderate - high VTE Device Contraindication: N/A - Device Ordered VTE Drug Contraindication: N/A - Med Ordered
--- NOTE | 2025-04-10 15:02 | ECG_ITS ---
Test Reason : cp Blood Pressure : */* mmHG Vent. Rate : 128 BPM Atrial Rate : 86 BPM P-R Int : 200 ms QRS Dur : 70 ms QT Int : 328 ms P-R-T Axes : * 26 44 degrees QTcB Int : 478 ms Sinus rhythm with Premature supraventricular complexes and with frequent , and consecutive Premature ventricular complexes Nonspecific ST abnormality Abnormal ECG When compared with ECG of 09-Apr-2025 09:19, Premature ventricular complexes are now Present Premature supraventricular complexes are now Present Vent. rate has increased by 58 bpm Referred By: Indio Jones Electronically Signed By: Prasad Berumen
[2025-04-10] MEDS: 0.9 % Sodium Chloride Flush 3 ML SYRINGE IVFLUSH ×2 (16:04→19:57)
[2025-04-11] VITALS (10 sets, daily range): BP systolic 109–165; BP diastolic 60–79; PULSE 53–92; RESP 17–18; TEMP 36.3–36.8; O2SAT 90–96
--- NOTE | 2025-04-11 | ECG_ITS ---
Test Reason : Rhythm change Blood Pressure : */* mmHG Vent. Rate : 101 BPM Atrial Rate : 156 BPM P-R Int : 224 ms QRS Dur : 68 ms QT Int : 332 ms P-R-T Axes : 53 20 47 degrees QTcB Int : 430 ms Normal sinus rhythm with frequent Premature atrial complexes and aberrant conduction Nonspecific ST and T wave abnormality Abnormal ECG When compared with ECG of 10-Apr-2025 15:26, Sinus rhythm has replaced Atrial fibrillation Nonspecific T wave abnormality no longer evident in Inferior leads Referred By: Lei Amaya Electronically Signed By: NICOLASA REDDY MD
[2025-04-11] MEDS: 0.9 % Sodium Chloride Flush 3 ML SYRINGE IVFLUSH ×3 (09:10→19:56)
[2025-04-11] MEDS: Aspirin Enteric Coated 81 MG TABLET.DR PO (09:18)
--- NOTE | 2025-04-11 13:40 | PM.CNCAR ---
History of Present Illness History of Present Illness Date of Service: 04/11/25 Requesting physician: Indio Jones Consult reason: atrial fibrillation Chief complaint: CVA Narrative: 89-year-old female presenting with aphasia. She has also been diagnosed with enteritis and is on antibiotics. She is complaining of nausea and vomiting this morning. Apparently she went into atrial fibrillation yesterday and converted back to sinus rhythm on her own. Currently in sinus rhythm. She is denying any symptoms with that. MRI has shown lacunar infarct in left and right frontal lobe. No intracranial findings otherwise to suggest any acute ischemic stroke. She was being treated with dual antiplatelet therapy till the atrial fibrillation develop. As mentioned she is back in sinus rhythm. [facility] Past Medical History Medical History (Updated 04/11/25 @ 10:12 by Indio Jones MD) HTN (hypertension) Surgical History Surgical History H/O: hysterectomy Social History Social History Household Members: None Housing: Apartment Housing Other:: [address] Do you presently have visiting nurse or other home services: No Alcohol intake: never Comment: freq checks on pt Patient Tobacco Use Status: Never used Tobacco Smoked in Last 30 Days: No Use of substances other than those prescribed or required for medical reasons: No Currently Displaying Signs/Symptoms of Drug Intoxication Withdrawal: No Have you been hit, kicked, punched, or otherwise hurt by someone within the past year? If so, by whom?: No Do you feel safe in your current relationship?: Yes Is there a partner from a previous relationship who is making you feel unsafe now?: No Are you made to feel afraid or neglected: No Advance Directives: No Advance Directives Information Provided: Yes Do you have a plan to hurt others: No Plan Recently lost weight without trying: Unsure Eating poorly because of decreased appetite: No Nutrition Risks: No Nutritional Risk Patient : No : No Poor oral hygiene: No service: No Travel History Ebola Risk: Travel/Contact With Anyone From Affected Area/s: No Has Patient Experienced Ebola Symptoms: No Meds Allergies Allergy/AdvReac Type Severity Reaction Status Date / Time No Known Allergies Allergy Verified 04/07/25 14:37 Active Medications: Current Medications Acetaminophen (Acetaminophen 325 Mg Tablet) 650 mg PO Q6H PRN PRN Reason: Pain, Mild 1-3,fever,headache Last Admin: 04/10/25 06:18 Dose: 325 mg Albuterol/Ipratropium (Albuterol/Iprat 2.5/0.5mg 3 Ml Ampul.Neb) 3 ml INHALE RQ4H PRN PRN Reason: Shortness of Breath/Wheezing Apixaban (Apixaban 5 Mg Tablet) 5 mg PO BID [facility] Aspirin (Aspirin Enteric Coated 81 Mg Tablet.Dr) 81 mg PO DAILY [facility] Last Admin: 04/11/25 09:18 Dose: 81 mg Atorvastatin Calcium (Atorvastatin Calcium 80 Mg Tablet) 80 mg PO DAILY [facility] Last Admin: 04/11/25 09:13 Dose: 80 mg Calcium Carbonate (Calcium Carbonate 750 Mg Tab.Chew) 750 mg PO Q4H PRN PRN Reason: Heartburn Clopidogrel Bisulfate (Clopidogrel Bisulfate 75 Mg Tablet) 75 mg PO ONCE [facility] Stop: 04/30/25 07:44 Last Admin: 04/09/25 11:47 Dose: 75 mg Hydromorphone HCl (Hydromorphone Hcl 1 Mg/Ml Syringe) 1 mg IVPUSH Q3H PRN; Protocol PRN Reason: Pain, Severe (Pain Scale 7-10) Last Admin: 04/09/25 17:20 Dose: 1 mg Hydromorphone HCl (Hydromorphone Hcl 0.5 Mg/0.5 Ml Syringe) 0.5 mg IVPUSH Q3H PRN; Protocol PRN Reason: Pain, Moderate(Pain Scale 4-6) Last Admin: 04/08/25 09:55 Dose: 0.5 mg Piperacillin Sod/Tazobactam (Sod 4.5 gm/ Sodium Chloride) 100 mls @ 200 mls/hr IV Q6H [facility] Last Admin: 04/11/25 13:13 Dose: 200 mls/hr Lisinopril (Lisinopril 10 Mg Tablet) 10 mg PO DAILY [facility]; Protocol Last Admin: 04/11/25 09:18 Dose: 10 mg Magnesium Hydroxide (Milk Of Magnesia 30 Ml Oral.Susp) 30 ml PO DAILY PRN PRN Reason: Constipation Melatonin (Melatonin 3 Mg Tablet) 6 mg PO BEDTIME PRN PRN Reason: Insomnia Last Admin: 04/08/25 21:06 Dose: 6 mg Metoprolol Tartrate (Metoprolol Tartrate 25 Mg Tablet) 25 mg PO BID [facility]; Protocol Last Admin: 04/11/25 09:13 Dose: 25 mg Ondansetron HCl (Ondansetron Hcl 4 Mg/2 Ml Vial) 4 mg IVPUSH Q8H PRN PRN Reason: Nausea and Vomiting Last Admin: 04/11/25 13:13 Dose: 4 mg Polyethylene Glycol (Polyethylene Glycol 3350 17 Gm Powd.Pack) 17 gm PO DAILY PRN PRN Reason: Constipation Sodium Chloride (0.9 % Sodium Chloride Flush 3 Ml Syringe) 3 ml IVFLUSH QSHIFT [facility] Last Admin: 04/11/25 09:10 Dose: 3 ml Home Medications ?Medication ?Instructions ?Recorded ?Confirmed ?Last Taken ?Type amlodipine 10 mg tablet 10 mg PO DAILY 04/07/25 04/08/25 Unknown History lisinopril 10 mg tablet 10 mg PO DAILY 04/07/25 04/08/25 Unknown History Physical Exam Vital Signs: Vital Signs: Last Vital Signs Temp 98.3 F 04/11/25 11:44 Pulse 78 04/11/25 11:44 Resp 18 04/11/25 11:44 BP 135/61 04/11/25 11:44 Pulse Ox 93 04/11/25 11:44 O2 Del Method Room Air 04/11/25 11:44 BMI result Body Mass Index 28.1 GENERAL APPEARANCE: in no acute distress, pleasant. NECK: no carotid bruit, no jugular venous distention. SKIN: no suspicious lesions, warm and dry. HEART: no murmurs, regular rate and rhythm. LUNGS: clear to auscultation bilaterally. ABDOMEN: soft, nontender. EXTREMITIES: no edema. PERIPHERAL PULSES: equal. NEUROLOGIC: No gross deficits, AAO X 3 Objective Labs and Meds 04/09/25 09:28 04/09/25 09:28 Assessment and Plan (1) Atrial fibrillation: Status: Acute (2) Aphasia: Status: Acute Plan Pleasant 89 year female presenting with aphasia and brain MRI showing lacunar infarct in left and right frontal lobe. No acute ischemic stroke noted otherwise. She was being treated with dual antiplatelet therapy and developed atrial fibrillation. She is back in sinus rhythm at this point. CHADS-VASc score is high. Would favor using Eliquis over dual antiplatelet therapy with diagnosis of atrial fibrillation. Rest of management as per the medical team. Blood pressure well controlled. Signing off for now. Thank you for allowing me to participate in the care of your patient. Please feel free to contact me if you have any questions. Procedures Date of Service Date of Service: 04/11/25
--- NOTE | 2025-04-11 14:10 | P.PNIM_ITS ---
Subjective Subjective Date of Service: 04/11/25 Interval History: Patient seen examined at bedside this morning, patient overnight had episode of paroxysmal atrial fibrillation. Requiring metoprolol. At this time patient complaining of nausea, as well as diplopia. However no neuromuscular deficits noted. currently on high-dose statin and Eliquis. Review of Systems Review of Systems: Yes all other systems are reviewed and are negative Physical Exam 2 Exam: Exam: General: AxOx2, No acute distress Head: AT/NC ENT: Moist mucous membranes Neck: supple CVS; RRR, S1 S2 normal Lungs: Clear bilateral breath sounds, no wheezes or crackles Abd: Soft non tender, non distended Ext: No edema and no calf tenderness MSK: moving all 4 limbs Skin: No cyanosis or edema Psych: poor insight Neurology: no focal deficits Vital Signs: Vital Signs: Last Vital Signs Temp 98.3 F 04/11/25 11:44 Pulse 78 04/11/25 11:44 Resp 18 04/11/25 11:44 BP 135/61 04/11/25 11:44 Pulse Ox 93 04/11/25 11:44 O2 Del Method Room Air 04/11/25 11:44 BMI result Body Mass Index 28.1 Objective Data Active Medications Acetaminophen (Acetaminophen 325 Mg Tablet) 650 mg PO Q6H PRN PRN Reason: Pain, Mild 1-3,fever,headache Last Admin: 04/10/25 06:18 Dose: 325 mg Documented By: JEWEL Comments: patient would only like 325mg Albuterol/Ipratropium (Albuterol/Iprat 2.5/0.5mg 3 Ml Ampul.Neb) 3 ml INHALE RQ4H PRN PRN Reason: Shortness of Breath/Wheezing Apixaban (Apixaban 5 Mg Tablet) 5 mg PO BID [facility] Atorvastatin Calcium (Atorvastatin Calcium 80 Mg Tablet) 80 mg PO DAILY [facility] Last Admin: 04/11/25 09:13 Dose: 80 mg Documented By: TRACIE Calcium Carbonate (Calcium Carbonate 750 Mg Tab.Chew) 750 mg PO Q4H PRN PRN Reason: Heartburn Hydromorphone HCl (Hydromorphone Hcl 1 Mg/Ml Syringe) 1 mg IVPUSH Q3H PRN; Protocol PRN Reason: Pain, Severe (Pain Scale 7-10) Last Admin: 04/09/25 17:20 Dose: 1 mg Documented By: CINDY Hydromorphone HCl (Hydromorphone Hcl 0.5 Mg/0.5 Ml Syringe) 0.5 mg IVPUSH Q3H PRN; Protocol PRN Reason: Pain, Moderate(Pain Scale 4-6) Last Admin: 04/08/25 09:55 Dose: 0.5 mg Documented By: MIKAEL Piperacillin Sod/Tazobactam (Sod 4.5 gm/ Sodium Chloride) 100 mls @ 200 mls/hr IV Q6H [facility] Last Infusion: 04/11/25 13:54 Dose: Infused Documented By: TRACIE Lisinopril (Lisinopril 10 Mg Tablet) 10 mg PO DAILY [facility]; Protocol Last Admin: 04/11/25 09:18 Dose: 10 mg Documented By: TRACIE Magnesium Hydroxide (Milk Of Magnesia 30 Ml Oral.Susp) 30 ml PO DAILY PRN PRN Reason: Constipation Melatonin (Melatonin 3 Mg Tablet) 6 mg PO BEDTIME PRN PRN Reason: Insomnia Last Admin: 04/08/25 21:06 Dose: 6 mg Documented By: ESTEVAN Metoprolol Tartrate (Metoprolol Tartrate 25 Mg Tablet) 25 mg PO BID [facility]; Protocol Last Admin: 04/11/25 09:13 Dose: 25 mg Documented By: TRACIE Ondansetron HCl (Ondansetron Hcl 4 Mg/2 Ml Vial) 4 mg IVPUSH Q8H PRN PRN Reason: Nausea and Vomiting Last Admin: 04/11/25 13:13 Dose: 4 mg Documented By: TRACIE Polyethylene Glycol (Polyethylene Glycol 3350 17 Gm Powd.Pack) 17 gm PO DAILY PRN PRN Reason: Constipation Sodium Chloride (0.9 % Sodium Chloride Flush 3 Ml Syringe) 3 ml IVFLUSH QSHIFT [facility] Last Admin: 04/11/25 09:10 Dose: 3 ml Documented By: TRACIE Labs 04/09/25 09:28 04/09/25 09:28 Assessment and Plan (1) Atrial fibrillation: Status: Acute (2) Stroke: Status: Acute (3) Enteritis: Status: Acute Plan Assessment: 89-year-old female with past medical history significant for HTN, hysterectomy who was BIBA from independent living for worsening abdominal pain. The ED found to have word-finding difficulty. CT scan with chronic periventricular microvascular ischemic disease. With MRI showing left and right frontal lobe single lacunar infarcts. w/ EEG negative for seizures. During stay patient developed atrial fibrillation, aspirin and Plavix discontinued and Eliquis restarted to decrease risk of bleeding given patient's age. 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 -TTE attempted however difficult to complete as patient was uncooperative -neurology and cardiology consulted and following -PT to assess Hypertension, chronic -continue dose lisinopril 10mg -continue hydralazine if SBP greater than 160, we will closely monitor and adjust medications accordingly. Enteritis, improving Ultrasound with cholelithiasis was CBD measuring [address] scan showing severe enteritis of small bowel with right lower quadrant with severe associated mesenteric edema. -continue Zosyn 4.5 g IV q.6 hours, IV fluids Quality Stroke Does the patient have a stroke diagnosis?: No Reason for No Anti-thrombotic by Day Two: N/A - Med Ordered VTE Prior VTE?: No VTE Risk Level:: Medical - moderate - high VTE Device Contraindication: N/A - Device Ordered VTE Drug Contraindication: N/A - Med Ordered
[2025-04-12] VITALS: BP 91/53; PULSE 137; RESP 16; TEMP 36.7; O2SAT 92
[2025-04-12 00:15] LABS: Anion Gap 12 (12-20); Blood Urea Nitrogen 18 mg/dL (9-16); Calcium 8.2 mg/dL (8.4-10.2); Carbon Dioxide 24 mmol/L (22-29); Chloride 109 mmol/L (96-108); Creatinine Clr Calc Pharmacy 34.2; Estimated Glomerular Filt Rate 51; Magnesium 1.8 mg/dL (1.6-2.6); Potassium 3.3 mmol/L (3.3-5.1); Sodium 142 mmol/L (135-145)
[2025-04-12 00:30] VITALS: BP 108/60
[2025-04-12 00:56] LABS: Albumin Level 3.0 g/dL (3.5-5.0)
[2025-04-12 07:21] LABS: Anion Gap 16 (12-20); Blood Urea Nitrogen 20 mg/dL (9-16); Calcium 8.4 mg/dL (8.4-10.2); Carbon Dioxide 22 mmol/L (22-29); Chloride 109 mmol/L (96-108); Creatinine Clr Calc Pharmacy 37.4; Estimated Glomerular Filt Rate 57; Potassium 3.6 mmol/L (3.3-5.1); Sodium 143 mmol/L (135-145)
[2025-04-12 08:00] VITALS: BP 116/65; PULSE 65; RESP 18; TEMP 36.2; O2SAT 94
[2025-04-12] MEDS: 0.9 % Sodium Chloride Flush 3 ML SYRINGE IVFLUSH (08:24)
[2025-04-12 08:25] VITALS: PULSE 51
--- NOTE | 2025-04-12 09:03 | MHC.STROKE ---
Dual Anti-platelet therapy dc'd by hospitalist. From provider note: During stay patient developed atrial fibrillation, aspirin and Plavix discontinued and Eliquis restarted to decrease risk of bleeding given patient's age.
[2025-04-12 12:00] VITALS: BP 132/61; PULSE 73; RESP 18; TEMP 36.7; O2SAT 92
--- NOTE | 2025-04-12 12:15 | MHC.CM.PN ---
Addendum entered by Darby Deleon RN 04/12/25 13:54: IMM 04/12/25 DELIVERED TO BEDSIDE Original Note: PER HOSPITALIST PT MEDICALLY CLEARED FOR DC TO STR, PER PT'S DTR [facility] PREFERRED FACILITY IS [facility] PT LIVES AT [facility] AND HER FRIENDS WILL BE ABLE TO VISIT, [facility] IS AGREEABLE TO DC TODAY IF BED OFFERED, [facility] CURRENTLY REVIEWING, CM WILL CONT TO FOLLOW.
--- NOTE | 2025-04-12 14:28 | PM.DS ---
DS: Providers Provider Date of Service: 04/12/25 Date of admission: 04/07/25 20:31 Date of discharge: 04/12/25 Primary care physician: Unknown Physician Consults: 04/09/25 07:29 Consult to Neurology Routine Consulting Provider: [facility] Reason for consultation: CVA Has provider been notified: No 04/10/25 16:04 Consult to Cardiology Routine Consulting Provider: [facility] Reason for consultation: afib/CVA Has provider been notified: No Attending physician on discharge: Indio Jones Discharging clinician: Indio Jones DS: Diagnosis Discharge Diagnosis (1) Atrial fibrillation: Status: Acute (2) Stroke: Status: Acute (3) Enteritis: Status: Acute DS: Summary Hospital Course Hospital Course: 89-year-old female with past medical history significant for HTN, hysterectomy who was BIBA from independent living for worsening abdominal pain. The ED found to have word-finding difficulty. CT scan with chronic periventricular microvascular ischemic disease. With MRI showing left and right frontal lobe single lacunar infarcts. w/ EEG negative for seizures. During stay patient developed atrial fibrillation, aspirin and Plavix discontinued and Eliquis restarted to decrease risk of bleeding given patient's age. 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 -TTE attempted however difficult to complete as patient was uncooperative -neurology and cardiology to follow up as outpatient -PT/OT Hypertension, chronic -continue dose lisinopril 10mg -continue hydralazine if SBP greater than 160, we will closely monitor and adjust medications accordingly. Enteritis, improving Ultrasound with cholelithiasis was CBD measuring [address] scan showing severe enteritis of small bowel with right lower quadrant with severe associated mesenteric edema. -GI soft diet, encourage PO Fluids, PRN anti emetics Status at Discharge Cognitive/behavioral status at discharge: cognitive dysfunction Overall status at discharge: patient is not back to baseline Time Attestation Total time managing care of this patient today: 40 mintues. Discharge Coordination Time (in mins): greater than 30 minutes Quality: Safe Use of Opioids Does Pt have an Active Cancer Diagnosis on the Problem List?: No Quality: Stroke Does the patient have a stroke diagnosis?: Yes Reason for No Anti-thrombotic at DC: Complication of medical care Reason for No Anticoagulant at DC: N/A - Med Ordered Reason Not Initiating IV-Tpa: Drug treatment not indicated Reason for No Anti-thrombotic by Day Two: N/A - Med Ordered Reason for No Statin at DC: N/A - Med Ordered Physical Exam Exam: Exam: General: AxOx2, No acute distress Head: AT/NC ENT: Moist mucous membranes Neck: supple CVS; RRR, S1 S2 normal Lungs: Clear bilateral breath sounds, no wheezes or crackles Abd: Soft non tender, non distended Ext: No edema and no calf tenderness MSK: moving all 4 limbs Skin: No cyanosis or edema Psych: poor insight Neurology: no focal deficits Vital Signs: Vital Signs: Last Vital Signs Temp 98.0 F 04/12/25 12:00 Pulse 73 04/12/25 12:00 Resp 18 04/12/25 12:00 BP 132/61 04/12/25 12:00 Pulse Ox 92 04/12/25 12:00 O2 Del Method Room Air 04/12/25 12:00 BMI result Body Mass Index 28.1 DS: Data Data Completed and Pending Labs on day of discharge: Laboratory Results - last 24 hr 04/11/25 04/12/25 23:55 05:53 Sodium 142 143 Potassium 3.3 3.6 Chloride 109 H 109 H Carbon Dioxide 24 22 Anion Gap 12 16 BUN 18 H 20 H Creatinine 1.02 0.93 Estim Creat Clear Calc 34.2 37.4 Estimated GFR 51 57 Random Glucose 94 87 Calcium 8.2 L 8.4 Phosphorus 2.9 Magnesium 1.8 Albumin 3.0 L Preliminary micro results at discharge 04/07/25 19:01 Blood Culture - Preliminary Blood - Venous No growth after 48 hours. 04/07/25 18:50 Blood Culture - Preliminary Blood - Venous No growth after 48 hours. Discharge Plan Discharge Anticipated Discharge Date/Time: 04/12/25 14:17 Patient Disposition: Xfer SNF Discharge Diagnosis: Enteritis, CVA, A fib Referrals: Ko Nelson Ruddy [facility] [Outside] - 1 Day Referral Note: SHORT TERM REHAB Anton Carmona MD [Physician, Neurology] - 2 Weeks Prasad Berumen MD [Physician, Cardiology] - 1 Week PhysicianSejal [Primary Care Provider, Medical] - 2 Weeks Referral Note: PRIMARY CARE DOCTOR THROUGH [facility]. Discharge Medications: New atorvastatin 80 mg Tablet 80 mg PO DAILY Qty: 30 0RF acetaminophen 325 mg Tablet 650 mg PO Q6H PRN (Reason: Pain, Mild 1-3,Fever,Headache) 5 Days Qty: 10 0RF polyethylene glycol 3350 17 gram Powder In Packet 17 g PO DAILY PRN (Reason: Constipation) Qty: 14 0RF metoprolol tartrate 25 mg Tablet 25 mg PO BID Qty: 60 0RF Protocol: Hold for SBP/HR < HOLD for SBP < : 90 HOLD for HR < : 60 ondansetron HCl (PF) 4 mg/2 mL Solution 4 mg IVPUSH Q8H PRN (Reason: Nausea And Vomiting) Qty: 20 0RF Eliquis 5 mg Tablet 5 mg PO BID Qty: 60 0RF Continued amlodipine 10 mg tablet 10 mg PO DAILY lisinopril 10 mg tablet 10 mg PO DAILY Discharge Orders: Discharge Order (Routine); Ordered 04/12/25 Ordered By: Indio Jones Diet: Low fat, low cholesterol Activity on Discharge: As tolerated Stand Alone Forms: Patient Portal Discharge page Print Language: [place] Care Plan Goals: improve ambulation, weakness, cognition, manage A fib and CVA Health Concerns: ambulatory dysfunction, generalized weakness, nausea/enteritis Plan of Treatment: continue w/ PT/OT, PRN emetics, follow up w/ cardiology and neurology. Assessment: 89-year-old female with past medical history significant for HTN, hysterectomy who was BIBA from independent living for worsening abdominal pain. The ED found to have word-finding difficulty. CT scan with chronic periventricular microvascular ischemic disease. With MRI showing left and right frontal lobe single lacunar infarcts. w/ EEG negative for seizures. During stay patient developed atrial fibrillation, aspirin and Plavix discontinued and Eliquis restarted to decrease risk of bleeding given patient's age. patient with episodes of nausea/vomiting, usually after meals, to initiate a low fat, GI diet and advance as tolerated. Patient Instructions: A-fib (Atrial Fibrillation) (DC), Stroke (DC), Enteritis (DC)
== END 2025-04-12 15:12 | disposition skilled nursing facility (03) | DRG 66 ==
LOC: HO.ED 20:14 → HO.EDOVER 20:40 → HO.S3 04-08 01:13 → HO.IMC 04-09 07:49
PROVIDERS: Internal Medicine; Physician Assistant Medical; Admitting Provider Nurse Practitioner Family; Emergency Provider Emergency Medicine Emergency Medical Services; Visit Provider Student in an Organized Health Care Education/Training Program
DX: I63.81 Other cerebral infarction due to occlusion or stenosis of small artery (principal); K52.9 Noninfective gastroenteritis and colitis, unspecified; I67.89 Other cerebrovascular disease; R47.01 Aphasia; H53.2 Diplopia; I48.0 Paroxysmal atrial fibrillation; Z66 Do not resuscitate; I10 Essential (primary) hypertension; K80.20 Calculus of gallbladder without cholecystitis without obstruction; Z79.899 Other long term (current) drug therapy
CPT/HCPCS: 36415; 36600; 70450; 70551; 74177; 76705; 80048; 80053; 80061; 80076; 81001; 82040; 82140; 82668; 82803; 82947; 83036; 83540; 83605; 83690; 83735; 84100; 85025; 85652; 86140; 87040; 92610; 93005; 93306; 95816; 97162; 97165; 97166; 97530; 99285; J0616; J0737; J1171; J1650; J1885; J2270; J2405; J2470; J2543; J7120; Q9967

== ENCOUNTER → 2025-04-07 15:55 | Outpatient (BNV) | payer MEDICARE, SELFPAY | PROVIDERS: Emergency Provider Emergency Medicine Emergency Medical Services; Visit Provider Radiology Diagnostic Radiology | DX: K52.9 Noninfective gastroenteritis and colitis, unspecified (principal); K80.20 Calculus of gallbladder without cholecystitis without obstruction | CPT/HCPCS: 74177 ==

== ENCOUNTER 2025-04-07 20:31 | Outpatient (BNV) | payer MEDICARE, SELFPAY | END 2025-04-08 18:40 | PROVIDERS: Admitting Provider Nurse Practitioner Family; Emergency Provider Emergency Medicine Emergency Medical Services; Visit Provider Radiology Diagnostic Radiology | DX: I63.81 Other cerebral infarction due to occlusion or stenosis of small artery (principal) | CPT/HCPCS: 70551 ==

== ENCOUNTER 2025-04-07 20:31 | Outpatient (BNV) | payer MEDICARE, SELFPAY | END 2025-04-09 09:19 | PROVIDERS: Admitting Provider Nurse Practitioner Family; Emergency Provider Emergency Medicine Emergency Medical Services; Visit Provider Internal Medicine Cardiovascular Disease | DX: I63.9 Cerebral infarction, unspecified (principal) | CPT/HCPCS: 93308 ==

== ENCOUNTER 2025-04-07 20:31 | Outpatient (BNV) | payer MEDICARE, SELFPAY | END 2025-04-09 09:18 | PROVIDERS: Admitting Provider Nurse Practitioner Family; Emergency Provider Emergency Medicine Emergency Medical Services; Visit Provider Radiology Diagnostic Radiology | DX: I63.9 Cerebral infarction, unspecified (principal) | CPT/HCPCS: 70450 ==

== ENCOUNTER 2025-04-07 20:31 | Outpatient (BNV) | payer MEDICARE, SELFPAY | END 2025-04-09 13:00 | PROVIDERS: Admitting Provider Nurse Practitioner Family; Emergency Provider Emergency Medicine Emergency Medical Services; Visit Provider Psychiatry & Neurology Neurology | DX: R41.82 Altered mental status, unspecified (principal) | CPT/HCPCS: 95816 ==

== ENCOUNTER 2025-04-07 20:31 | Outpatient (BNV) | payer MEDICARE, SELFPAY | END 2025-04-07 21:47 | PROVIDERS: Admitting Provider Nurse Practitioner Family; Emergency Provider Emergency Medicine Emergency Medical Services; Visit Provider Internal Medicine Cardiovascular Disease | DX: I10 Essential (primary) hypertension (principal) | CPT/HCPCS: 93010 ==

== ENCOUNTER 2025-04-07 20:31 | Outpatient (BNV) | payer MEDICARE, SELFPAY | END 2025-04-10 15:26 | PROVIDERS: Admitting Provider Nurse Practitioner Family; Emergency Provider Emergency Medicine Emergency Medical Services; Visit Provider Internal Medicine Cardiovascular Disease | DX: I48.91 Unspecified atrial fibrillation (principal); I49.3 Ventricular premature depolarization; I49.1 Atrial premature depolarization | CPT/HCPCS: 93010 ==

== ENCOUNTER 2025-04-07 20:31 | Outpatient (BNV) | payer MEDICARE, SELFPAY | END 2025-04-11 23:30 | PROVIDERS: Admitting Provider Nurse Practitioner Family; Emergency Provider Emergency Medicine Emergency Medical Services; Visit Provider Internal Medicine Cardiovascular Disease | DX: I49.1 Atrial premature depolarization (principal) | CPT/HCPCS: 93010 ==

== ENCOUNTER → 2025-04-07 20:31 | Outpatient (BNV) | payer MEDICARE, SELFPAY | PROVIDERS: Admitting Provider Nurse Practitioner Family; Emergency Provider Emergency Medicine Emergency Medical Services; Visit Provider Internal Medicine Cardiovascular Disease | DX: I48.91 Unspecified atrial fibrillation (principal); R47.01 Aphasia | CPT/HCPCS: 99223 ==

== ENCOUNTER → 2025-04-07 20:31 | Outpatient (BNV) | payer MEDICARE, SELFPAY | PROVIDERS: Admitting Provider Nurse Practitioner Family; Emergency Provider Emergency Medicine Emergency Medical Services; Visit Provider Nurse Practitioner Family | DX: I48.91 Unspecified atrial fibrillation (principal); I63.9 Cerebral infarction, unspecified; K52.9 Noninfective gastroenteritis and colitis, unspecified | CPT/HCPCS: 99223; 99233; 99239; 99499 ==

== ENCOUNTER → 2025-04-07 20:31 | Outpatient (BNV) | payer MEDICARE, SELFPAY | PROVIDERS: Admitting Provider Nurse Practitioner Family; Emergency Provider Emergency Medicine Emergency Medical Services; Visit Provider Psychiatry & Neurology Neurology | DX: I67.89 Other cerebrovascular disease (principal); R47.89 Other speech disturbances | CPT/HCPCS: 99223 ==